=== PATIENT | female | born 1985 | race Two or more races ===

== ENCOUNTER 2020-08-29 20:35 | Emergency (ER) | payer MEDICAID ==
[~2020-08-29] VITALS: Ht 167.6 cm; Wt 83.9 kg
[~2020-08-29 20:35] MED LIST: ALBUPOW26
[2020-08-29 21:56] VITALS: BP 136/85
[2020-08-29] MEDS ORDERED: ACETAMINOPHEN 325 MG TAB PO ONE (22:15)
[2020-08-30] MEDS ORDERED: cefTRIAXone SOD 1,000 MG VL IM ONE (00:45)
[2020-08-30] MEDS ORDERED: TETANUS-DIPTH-ACEL PERTUSSIS 0.5ML SYR Tdap IM ONE (00:45)
[2020-08-30] MEDS ORDERED: BACITRACIN TOP OINT 1 UD PKG TOP ONE (00:45)
== END 2020-08-30 01:13 | disposition home or self-care (01) ==
LOC: ER 20:40
DX: O9A.211 Injury, poisoning and certain other consequences of external causes complicating pregnancy, first trimester (principal); S91.332A Puncture wound without foreign body, left foot, initial encounter; W22.8XXA Striking against or struck by other objects, initial encounter; Y93.89 Activity, other specified; Y99.8 Other external cause status; Y92.89 Other specified places as the place of occurrence of the external cause
CPT/HCPCS: 81025; 90471; 90715; 96372; 99284; J0696

== ENCOUNTER 2020-09-29 19:37 | Emergency (ER) | payer MEDICAID ==
[~2020-09-29] VITALS: Ht 170.2 cm; Wt 90.7 kg
[2020-09-29] MEDS ORDERED: ACETAMINOPHEN 325 MG TAB PO ONE (21:00)
[2020-09-29] MEDS ORDERED: SODIUM CHLORIDE 0.9% 1,000 ML IV ONE (21:00)
[2020-09-29 21:13] LABS: Basophils # (auto) 0.1 10 ^3/uL (0-0.2); Basophils % (auto) 0.4 % (0.0-2.0); Eosinophils # (auto) 0.2 10 ^3/uL (0-0.8); Eosinophils % (auto) 1.3 % (0.0-7.0); Hematocrit 37.5 % (36.0-46.0); Hemoglobin 12.8 g/dL (12.2-16.2); Lymphocytes # (auto) 2.7 10 ^3/uL (0.4-5.4); Lymphocytes % (auto) 20.7 % (10.0-50.0); Mean Corpuscular Hemoglobin 29.6 pg (28.0-32.0); Monocytes # (auto) 0.9 10 ^3/uL (0-1.3); Monocytes % (auto) 6.6 % (0.0-12.0); Neutrophils # (auto) 9.1 10 ^3/uL (1.6-8.6); Nucleated Red Blood Cells % 0.1 %; Platelet Count (auto) 265 10^3/uL (140-450); Red Blood Cells 4.31 10^6/uL (4.0-5.20); Red Cell Distribution Width 14.5 % (11.8-14.3); White Blood Cell 12.9 10^3/uL (4.4-10.8)
[2020-09-29 21:30] LABS: Albumin 3.5 g/dL (3.4-5.0); Calcium 8.7 mg/dL (8.5-10.1); Potassium 3.8 mmol/L (3.5-5.1)
[2020-09-29 21:33] LABS: BUN/Creatinine Ratio 21.7; Bilirubin, Total 0.6 mg/dL (0.2-1.0); Total Protein 7.5 g/dL (6.4-8.2)
[2020-09-29 22:31] VITALS: BP 113/71
== END 2020-09-29 22:36 | disposition home or self-care (01) ==
LOC: ER 19:37
DX: O20.0 Threatened abortion (principal); O20.8 Other hemorrhage in early pregnancy; Z3A.11 11 weeks gestation of pregnancy
CPT/HCPCS: 36415; 76801; 80053; 84702; 85025; 96360; 99284; J7030

== ENCOUNTER 2021-01-22 08:58 | Emergency (ER) | payer MEDICAID ==
[~2021-01-22] VITALS: Ht 167.6 cm; Wt 99.8 kg
[2021-01-22] MEDS ORDERED: SODIUM CHLORIDE 0.9% 1,000 ML IV ONE ×2 (09:15)
[2021-01-22 09:22] LABS: Basophils # (auto) 0 10 ^3/uL (0-0.2); Basophils % (auto) 0.4 % (0.0-2.0); Eosinophils # (auto) 0.1 10 ^3/uL (0-0.8); Eosinophils % (auto) 0.9 % (0.0-7.0); Hematocrit 37.3 % (36.0-46.0); Hemoglobin 12.3 g/dL (12.2-16.2); Lymphocytes # (auto) 1.8 10 ^3/uL (0.4-5.4); Lymphocytes % (auto) 15.6 % (10.0-50.0); Mean Corpuscular Hemoglobin 28.5 pg (28.0-32.0); Mean Corpuscular Hgb Conc. 33.1 g/dL (32.0-36.0); Mean Corpuscular Volume 86.2 fL (80.0-100.0); Monocytes # (auto) 0.4 10 ^3/uL (0-1.3); Monocytes % (auto) 3.8 % (0.0-12.0); Neutrophils % (auto) 79.3 % (37.0-80.0); Red Blood Cells 4.32 10^6/uL (4.0-5.20); Red Cell Distribution Width 14.1 % (11.8-14.3); White Blood Cell 11.4 10^3/uL (4.4-10.8)
[2021-01-22 09:35] LABS: Albumin 2.6 g/dL (3.4-5.0); Calcium 8.2 mg/dL (8.5-10.1); Potassium 3.6 mmol/L (3.5-5.1)
[2021-01-22 09:39] LABS: BUN/Creatinine Ratio 6.6; Bilirubin, Total 0.2 mg/dL (0.2-1.0); Total Protein 6.6 g/dL (6.4-8.2)
[2021-01-22] MEDS ORDERED: ONDANSETRON HCL 4 MG/2 ML VIAL IV ONE (11:30)
[2021-01-22 13:14] VITALS: BP 127/69
== END 2021-01-22 13:08 | disposition home or self-care (01) ==
LOC: ER 08:58
DX: O21.8 Other vomiting complicating pregnancy (principal); Z3A.27 27 weeks gestation of pregnancy
CPT/HCPCS: 36415; 76805; 80053; 84702; 85025; 96361; 96374; 99284; J2405; J7030

== ENCOUNTER 2021-02-03 17:47 | Observation (INO) | payer MEDICAID ==
[~2021-02-03] VITALS: Ht 170.2 cm; Wt 101.2 kg
[2021-02-03 17:55] VITALS: BP 152/72
[2021-02-03] MEDS ORDERED: PREN-96 PO (18:25)
== END 2021-02-03 19:00 | disposition home or self-care (01) ==
LOC: ER 17:47 → LDRP 17:50
PROVIDERS: ADMIT Obstetrics & Gynecology; ATTEND Obstetrics & Gynecology
DX: O62.9 Abnormality of forces of labor, unspecified (principal); O99.891 Other specified diseases and conditions complicating pregnancy; R10.9 Unspecified abdominal pain; M54.9 Dorsalgia, unspecified; D84.9 Immunodeficiency, unspecified; Z3A.30 30 weeks gestation of pregnancy
CPT/HCPCS: 59025; 81002; 99284; G0378

== ENCOUNTER 2021-03-20 10:30 | Observation (INO) | payer MEDICAID ==
[~2021-03-20 10:30] MED LIST changes: +PREN-96 PO
== END 2021-03-20 11:27 | disposition home or self-care (01) ==
LOC: LDRP 10:30
PROVIDERS: ADMIT Obstetrics & Gynecology; ATTEND Obstetrics & Gynecology
DX: O99.613 Diseases of the digestive system complicating pregnancy, third trimester (principal); K08.89 Other specified disorders of teeth and supporting structures; O26.893 Other specified pregnancy related conditions, third trimester; R10.9 Unspecified abdominal pain; Z3A.36 36 weeks gestation of pregnancy; Z87.51 Personal history of pre-term labor
CPT/HCPCS: 59025; 81002; 94760; G0378; G0379

== ENCOUNTER 2021-10-04 11:45 | Emergency (ER) | payer MEDICAID, OTHER ==
[~2021-10-04] VITALS: Ht 170.2 cm; Wt 90.7 kg
[2021-10-04 12:44] LABS: Eosinophils # (auto) 0.1 10 ^3/uL (0-0.8); Hematocrit 39.6 % (36.0-46.0); Lymphocytes # (auto) 1.7 10 ^3/uL (0.4-5.4); Mean Corpuscular Hemoglobin 26.9 pg (28.0-32.0); Monocytes # (auto) 0.5 10 ^3/uL (0-1.3)
[2021-10-04] MEDS ORDERED: SODIUM CHLORIDE 0.9% 1,000 ML IV ONE (12:45)
[2021-10-04] MEDS ORDERED: ONDANSETRON HCL 4 MG/2 ML VIAL IV ONE ×2 (12:45→16:30)
[2021-10-04] MEDS ORDERED: HYDROmorphone HCL 2 MG/ML VL/or syr IV ONE ×2 (12:45→16:30)
[2021-10-04 12:46] LABS: Basophils # (auto) 0 10 ^3/uL (0-0.2); Basophils % (auto) 0.3 % (0.0-2.0); Eosinophils % (auto) 0.9 % (0.0-7.0); Lymphocytes % (auto) 13.1 % (10.0-50.0); Mean Corpuscular Volume 81.6 fL (80.0-100.0); Monocytes % (auto) 3.8 % (0.0-12.0); Neutrophils # (auto) 10.8 10 ^3/uL (1.6-8.6); Neutrophils % (auto) 81.9 % (37.0-80.0); Red Blood Cells 4.85 10^6/uL (4.0-5.20); Red Cell Distribution Width 14.7 % (11.8-14.3); White Blood Cell 13.2 10^3/uL (4.4-10.8)
[2021-10-04 13:00] LABS: Albumin 3.6 g/dL (3.4-5.0); Calcium 8.6 mg/dL (8.5-10.1); Potassium 3.1 mmol/L (3.5-5.1)
[2021-10-04 13:06] LABS: Bilirubin, Total 0.8 mg/dL (0.2-1.0); Total Protein 7.6 g/dL (6.4-8.2)
[2021-10-04 13:21] LABS: Urine Bacteria FEW /hpf (None Seen); Urine Blood 1+ /uL (Negative); Urine Specific Gravity 1.007 (1.001-1.035); Urine WBC 1 /hpf (0 - 5)
[2021-10-04] MEDS ORDERED: CIPR-173 PO (16:01)
[2021-10-04] MEDS ORDERED: PERCOT PO (16:01)
[2021-10-04] MEDS ORDERED: TAM04C PO (16:01)
[2021-10-04 17:13] VITALS: BP 113/68
== END 2021-10-04 17:30 | disposition home or self-care (01) ==
LOC: ER 11:45 → EDBD 11:45 → ER 17:30
DX: N20.1 Calculus of ureter (principal); Z79.899 Other long term (current) drug therapy
CPT/HCPCS: 36415; 74176; 80053; 81001; 83690; 85025; 96361; 96374; 96375; 96376; 99285; J1170; J2405; J7030

== ENCOUNTER 2024-02-15 10:48 | Inpatient (IN) | payer MEDICAID ==
[~2024-02-15] VITALS: Ht 167.6 cm; Wt 94.0 kg
[~2024-02-15 10:48] MED LIST changes: +CIPR-173 PO; +PERCOT PO; +TAMS-35 PO
[2024-02-15] MEDS: VANCOMYCIN 1GM/200ML PREMIX 200 ML IV ONE ×2 (11:59→18:01)
[2024-02-15] MEDS: MORPHINE SULFATE 4 MG/ML SYR/VIAL IV ONE (11:59)
[2024-02-15] MEDS: ONDANSETRON HCL 4 MG/2 ML VIAL IV ONE (11:59)
[2024-02-15 12:13] VITALS: PULSE 63; O2SAT 99
[2024-02-15] MEDS ORDERED: AUG875T PO (13:07)
[2024-02-15] MEDS ORDERED: ACETAMINOPHEN 325 MG TAB PO PRN (16:00)
[2024-02-15] MEDS ORDERED: VANCOMYCIN PER PHARMACY 0 MG IV SCH ×2 (16:15→16:30)
[2024-02-15] MEDS: ACETAMINOPHEN 500 MG TAB PO ONE ×2 (16:18→16:19)
[2024-02-15] MEDS: SODIUM CHLORIDE 0.9% 1,000 ML IV SCH (17:16)
[2024-02-15] MEDS: MORPHINE SULFATE INJ 2 MG/ml SYRG IV PRN (18:01)
[2024-02-15 19:09] LABS: Basophils # (auto) 0.1 10 ^3/uL (0-0.2); Basophils % (auto) 0.8 % (0.0-2.0); Lymphocytes # (auto) 2.2 10 ^3/uL (0.4-5.4); Mean Corpuscular Hgb Conc. 32.1 g/dL (32.0-36.0); Red Cell Distribution Width 18.8 % (11.8-14.3); White Blood Cell 8.3 10^3/uL (4.4-10.8)
[2024-02-15 19:11] LABS: Eosinophils # (auto) 0.4 10 ^3/uL (0-0.8); Eosinophils % (auto) 4.6 % (0.0-7.0); Hematocrit 35.6 % (36.0-46.0); Hemoglobin 11.4 g/dL (12.2-16.2); Mean Corpuscular Hemoglobin 25.4 pg (28.0-32.0); Mean Corpuscular Volume 79.2 fL (80.0-100.0); Monocytes # (auto) 0.7 10 ^3/uL (0-1.3); Monocytes % (auto) 8.2 % (0.0-12.0); Neutrophils # (auto) 4.9 10 ^3/uL (1.6-8.6); Neutrophils % (auto) 59.4 % (37.0-80.0); Platelet Count (auto) 344 10^3/uL (140-450)
[2024-02-15 19:16] LABS: Chloride 107 mmol/L (98-107); Potassium 3.4 mmol/L (3.5-5.1); Sodium 139 mmol/L (136-145)
[2024-02-15 19:17] LABS: Anion Gap 7 (5-15); Calcium 9.2 mg/dL (8.7-10.4); Carbon Dioxide 25 mmol/L (20-31)
[2024-02-15 19:22] LABS: BUN/Creatinine Ratio 12.7 (10.0-20.0); Blood Urea Nitrogen 9 mg/dL (9-23); Glucose 72 mg/dL (74-106)
[2024-02-15] MEDS ORDERED: OXY10CRT PO (20:19)
[2024-02-15] MEDS ORDERED: TRAM50TA2 PO (20:19)
[2024-02-15] MEDS ORDERED: GABA-2171 PO (20:19)
[2024-02-15] MEDS: HYDROcodone-ACET 5/325MG TAB PO PRN (20:44)
[2024-02-15] MEDS: ASCORBIC ACID 500 MG TAB PO SCH (20:44)
[2024-02-15 21:00] VITALS: BP 113/70; PULSE 65; RESP 19; TEMP 98; O2SAT 98
[2024-02-16] VITALS (7 sets, daily range): BP systolic 103–154; BP diastolic 44–66; PULSE 60–84; RESP 17–21; TEMP 97.6–98.3; O2SAT 95–100
[2024-02-16 07:45] LABS: Basophils # (auto) 0.1 10 ^3/uL (0-0.2); Eosinophils # (auto) 0.5 10 ^3/uL (0-0.8); Eosinophils % (auto) 5.3 % (0.0-7.0); Hematocrit 36.2 % (36.0-46.0); Lymphocytes # (auto) 1.5 10 ^3/uL (0.4-5.4); Monocytes # (auto) 0.6 10 ^3/uL (0-1.3)
[2024-02-16 07:47] LABS: Basophils % (auto) 0.9 % (0.0-2.0); Hemoglobin 11.5 g/dL (12.2-16.2); Lymphocytes % (auto) 16.4 % (10.0-50.0); Mean Corpuscular Hemoglobin 25.3 pg (28.0-32.0); Mean Corpuscular Hgb Conc. 31.8 g/dL (32.0-36.0); Mean Corpuscular Volume 79.7 fL (80.0-100.0); Monocytes % (auto) 6.8 % (0.0-12.0); Neutrophils # (auto) 6.5 10 ^3/uL (1.6-8.6); Neutrophils % (auto) 70.6 % (37.0-80.0); Nucleated Red Blood Cells % 0.2 %; Platelet Count (auto) 322 10^3/uL (140-450); Red Blood Cells 4.55 10^6/uL (4.0-5.20); Red Cell Distribution Width 18.8 % (11.8-14.3); White Blood Cell 9.2 10^3/uL (4.4-10.8)
[2024-02-16 08:02] LABS: Alanine Aminotransferase < 9 U/L (7-40); Albumin 4.1 g/dL (3.2-4.8); Alkaline Phosphatase 68 U/L (46-116); Anion Gap 7 (5-15); Aspartate Aminotransferase 10 U/L (13-40); BUN/Creatinine Ratio 12.1 (10.0-20.0); Blood Urea Nitrogen 7 mg/dL (9-23); Calcium 8.9 mg/dL (8.7-10.4); Carbon Dioxide 22 mmol/L (20-31); Chloride 109 mmol/L (98-107); Glucose 92 mg/dL (74-106); Potassium 4.1 mmol/L (3.5-5.1); Sodium 138 mmol/L (136-145)
[2024-02-16 08:03] LABS: Bilirubin, Total 0.3 mg/dL (0.2-1.0)
[2024-02-16] MEDS: MULTIPLE VITAMIN TAB PO SCH (08:34)
[2024-02-16] MEDS: PRENATAL VITAMIN TAB PO SCH (08:34)
[2024-02-16] MEDS: ZINC SULFATE 220mg CAP or TAB PO SCH (08:34)
[2024-02-16] MEDS: TAMSULOSIN HYDROCHLORIDE 0.4 MG CAP PO SCH (08:34)
[2024-02-16] MEDS: ENOXAPARIN SOD 40 MG/0.4 ML SYRINGE SC SCH (08:34)
[2024-02-16] MEDS ORDERED: PATIENTS OWN MEDICATION (Prenatal Vit W/ Ferrous Fumara (Prenatal One Daily) 1 TAB) PO SCH (10:00)
[2024-02-16] MEDS ORDERED: TAMSULOSIN HYDROCHLORIDE 0.4 MG CAP PO SCH (10:00)
[2024-02-16] MEDS ORDERED: ENOXAPARIN SOD 40 MG/0.4 ML SYRINGE SC SCH (10:00)
[2024-02-16] MEDS: cefTRIAXone 1GM/50ML D5W 50 ML IV ONE (12:59)
[2024-02-16 16:30] LABS: % Iron Saturation 7.4 % (15-50)
[2024-02-16] MEDS: VANCOMYCIN 1GM/200ML PREMIX 200 ML IV SCH (16:55)
[2024-02-16] MEDS: GADOTERATE MEG 10 MMOL/20ml INJ (0.5MMOL/ml) IV ONE (17:43)
[2024-02-17 05:00] VITALS: BP 119/76; PULSE 60; RESP 17; TEMP 98; O2SAT 100
[2024-02-17 07:05] LABS: Calcium 9.2 mg/dL (8.7-10.4); Chloride 107 mmol/L (98-107); Potassium 4.2 mmol/L (3.5-5.1); Sodium 140 mmol/L (136-145)
[2024-02-17 07:06] LABS: Anion Gap 6 (5-15); Carbon Dioxide 27 mmol/L (20-31)
[2024-02-17 07:11] LABS: BUN/Creatinine Ratio 15.4 (10.0-20.0); Blood Urea Nitrogen 10 mg/dL (9-23); Glucose 97 mg/dL (74-106)
[2024-02-17 07:21] LABS: Basophils # (auto) 0.1 10 ^3/uL (0-0.2); Eosinophils # (auto) 0.6 10 ^3/uL (0-0.8); Eosinophils % (auto) 8.5 % (0.0-7.0); Hematocrit 34.3 % (36.0-46.0); Lymphocytes # (auto) 1.4 10 ^3/uL (0.4-5.4); Lymphocytes % (auto) 19.2 % (10.0-50.0); Mean Corpuscular Hemoglobin 25.9 pg (28.0-32.0); Mean Corpuscular Hgb Conc. 32.1 g/dL (32.0-36.0); Mean Corpuscular Volume 80.4 fL (80.0-100.0); Monocytes # (auto) 0.6 10 ^3/uL (0-1.3); Neutrophils # (auto) 4.7 10 ^3/uL (1.6-8.6); Neutrophils % (auto) 63.3 % (37.0-80.0); Platelet Count (auto) 288 10^3/uL (140-450); Red Blood Cells 4.26 10^6/uL (4.0-5.20); Red Cell Distribution Width 18.4 % (11.8-14.3); White Blood Cell 7.5 10^3/uL (4.4-10.8)
[2024-02-17] MEDS: cefTRIAXone 1GM/50ML D5W 50 ML IV SCH (08:18)
[2024-02-17 09:00] VITALS: BP 127/73; PULSE 63; RESP 16; TEMP 97.4; O2SAT 99
[2024-02-17] MEDS ORDERED: IRON SUCROSE COMPLEX 100 ML IV SCH (12:00)
[2024-02-17] MEDS: IRON SUCROSE COMPLEX 100 ML IV SCH (12:23)
[2024-02-17 13:00] VITALS: BP 118/65; PULSE 77; RESP 19; TEMP 97.9; O2SAT 98
[2024-02-17] MEDS: VANCOMYCIN 1GM/250ML 250 ML IV SCH (15:41)
[2024-02-17 17:00] VITALS: BP 120/63; PULSE 62; RESP 17; TEMP 98.1; O2SAT 97
[2024-02-17 21:00] VITALS: BP 113/56; PULSE 71; RESP 20; TEMP 97.1; O2SAT 97
[2024-02-18 01:00] VITALS: BP 110/50; PULSE 75; RESP 19; TEMP 97; O2SAT 96
[2024-02-18] MEDS: VANCOMYCIN 1GM/200ML PREMIX 200 ML IV ONE (03:22)
[2024-02-18] MEDS: VANCOMYCIN 1GM/250ML 250 ML IV SCH ×2 (03:53→14:00)
[2024-02-18 05:00] VITALS: BP 112/45; PULSE 79; RESP 19; TEMP 98.1; O2SAT 94
[2024-02-18 09:01] VITALS: BP 117/69; PULSE 72; RESP 16; TEMP 97.9; O2SAT 97
[2024-02-18] MEDS: KETOROLAC TROMETH 30 MG/ML 1ML VIAL IV ONE (09:22)
[2024-02-18] MEDS ORDERED: LINE1TAB6 PO (09:51)
[2024-02-18 11:05] LABS: Anion Gap 5 (5-15); Carbon Dioxide 28 mmol/L (20-31); Chloride 105 mmol/L (98-107); Potassium 3.9 mmol/L (3.5-5.1); Sodium 138 mmol/L (136-145)
[2024-02-18 11:06] LABS: Calcium 9.6 mg/dL (8.7-10.4)
[2024-02-18 11:11] LABS: BUN/Creatinine Ratio 12.3 (10.0-20.0); Blood Urea Nitrogen 7 mg/dL (9-23); Glucose 86 mg/dL (74-106)
[2024-02-18 12:51] VITALS: TEMP 36.6
[2024-02-18] MEDS ORDERED: TRAM-626 PO (14:16)
[2024-02-18 14:46] VITALS: BP 126/82; PULSE 73; RESP 18
[2024-02-18] MEDS ORDERED: TRAM50TA2 PO (14:48)
== END 2024-02-18 16:33 | disposition home or self-care (01) | DRG 813 ==
LOC: ER 10:53 → OVERFLOW 16:10 → CENTRAL 18:35
PROVIDERS: ADMIT Internal Medicine; ATTEND Internal Medicine
DX: T86.822 Skin graft (allograft) (autograft) infection (principal); L03.115 Cellulitis of right lower limb; S91.301A Unspecified open wound, right foot, initial encounter; D50.9 Iron deficiency anemia, unspecified; F12.10 Cannabis abuse, uncomplicated; E66.9 Obesity, unspecified; E87.6 Hypokalemia; X58.XXXA Exposure to other specified factors, initial encounter; Z82.5 Family history of asthma and other chronic lower respiratory diseases; Z87.442 Personal history of urinary calculi; Z83.3 Family history of diabetes mellitus; Y93.89 Activity, other specified; Y92.89 Other specified places as the place of occurrence of the external cause; Y99.8 Other external cause status; Z68.31 Body mass index [BMI] 31.0-31.9, adult
CPT/HCPCS: 36415; 73720; 80048; 80053; 80202; 83540; 83550; 84702; 85025; 87081; G0378; J1885; J2405

== ENCOUNTER 2024-03-23 14:01 | Emergency (ER) | payer MEDICAID ==
[~2024-03-23] VITALS: Ht 167.6 cm; Wt 86.3 kg
[~2024-03-23 14:01] MED LIST changes: -ALBUPOW26; -CIPR-173 PO; +LINE1TAB6 PO; -PERCOT PO; -PREN-96 PO; -TAMS-35 PO; +TRAM-626 PO; +TRAM50TA2 PO
--- NOTE | 2024-03-23 16:44 | ED.PDOC ---
History of Present Illness HPI Comments 38 y/o F presents with c/o right foot wound discharge with associated pain, today. Patient reports onset of symptoms within the past 2 days following recent skin graft Sx to her right foot at [facility] on 02/27/24. Patient comments on being unable to drive herself to facility regar ding symptoms. Patient states on dressing wound, herself, since Sx. Denies having any fever, chills, numbness, or other associated symptoms or modifiers at this time. Chief Complaint: Wound Check Time Seen by MD: 16:30 Primary Care Provider: UNKNOWN Reviewed Notes: Nurses Notes, Medications, Allergies Allergies: Coded Allergies: NO KNOWN ALLERGIES (Unverified , 10/18/10) Home Meds Active Scripts Tramadol HCl (Tramadol HCl) 50 Mg Tab, 50 MG PO Q8HP PRN for 7 Days, #21 TAB Prov:RADHA ARNOLD MD 02/18/24 Linezolid (Zyvox) 600 Mg Tab, 600 MG PO BID for 10 Days, #20 TAB Prov:ISABEL BROWNING RESIDENT 02/18/24 Reported Medications Tramadol Hcl (Tramadol Hcl) 50 Mg Tab, 50 MG PO Q8HP PRN for 7 Days, #21 TAB 02/18/24 Information Source: Patient Mode of Arrival: Wheelchair Severity: Moderate Timing: Other (see HPI) Duration: Other (see HPI) Prehospital treatment: Other (see HPI) Past Medical History PAST MEDICAL HISTORY: Kidney Stones Past Medical History (Other): current right wound Surgical History (Other): skin 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 Family History Family History: Family hx of DM Social History Smoker: Non-Smoker Alcohol: Denies ETOH Use Drugs: Marijuana Lives In: Home Constitutional: denies: chills, diaphoresis, fatigue, fever, malaise, sweats, weakness, others EENTM: denies: blurred vision, double vision, ear bleeding, ear discharge, ear drainage, ear pain, ear ringing, eye pain, eye redness, hearing loss, mouth pain, mouth swelling, nasal discharge, nose bleeding, nose congestion, nose pain, photophobia, tearing, throat pain, throat swelling, voice changes, others Respiratory: denies: cough, hemoptysis, orthopnea, SOB at rest, shortness of b reath, SOB with excertion, stridor, wheezing, others Cardiovascular: denies: chest pain, dizzy spells, diaphoresis, Dyspnea on exertion, edema, irregular heart beat, left arm pain, lightheadedness, palpitations, PND, syncope, others Gastrointestinal: denies: abdomen distended, abdominal pain, blood streaked bowels, constipated, diarrhea, dysphagia, difficulty swallowing, hematemesis, melena, nausea, poor appetite, poor fluid intake, rectal bleeding, rectal pain, vomiting, others Genitourinary: denies: abnormal vagina bleeding, burning, dyspareunia, dysuria, flank pain, frequency, hematuria, incontinence, pain, , vagina discharge, urgency, others Neurological: denies: dizziness, fainting, headache, left sided numbness, left sided weakness, numbness, paresthesia, pre-existing deficit, right sided numbness, right sided weakness, seizure, speech problems, tingling, tremors, weakness, others Musculoskeletal: denies: back pain, gout, joint pain, joint swelling, muscle pain, muscle stiffness, neck pain, others Integumetry: denies: bruises, change in color, change in hair/nails, dryness, laceration, lesions, lumps, rash, wounds, others Allergic/Immunocompromised: denies: Difficulty Healing, Frequent Infections, Hives, Itching, others Hematologic/Lymphatic: denies: anemia, blood clots, easy bleeding, easy bruising, swollen glands, others Endocrine: denies: excessive hunger, excessive sweating, excessive thirst, excessive urination, flushing, intolerance to cold, intolerance to heat, unexplained weight gain, unexplained weight loss, others Psychiatric: denies: anxiety, bipolar disorder, depression, hopeless, panic disorder, schizophrenia, sleepless, suicidal, others All Other Systems: Reviewed and Negative (see HPI) Physical Exam General Appearance: Moderate Distress HEENT: Normal ENT Inspection, Pharynx Normal, TMs Normal Neck: Full Range of Motion, Non-Tender, Normal, Normal Inspection Respiratory: Chest Non-Tender, Lungs Clear, No Accessory Muscle Use, No Respiratory Distress, Normal Breath Sounds Cardiovascular: No Edema, No JVD, No Murmur, No Gallop, Normal Peripheral Pulses, Regular Rate/Rhythm Breast Exam: Deferred Gastrointestinal: No Organomegaly, Non Tender, No Pulsatile Mass, Normal Bowel Sounds, Soft Genitalia: Deferred Pelvic: Deferred Rectal: Deferred Extremities: No calf tenderness, Normal capillary refill, Normal inspection, Normal range of motion, Non-tender, No pedal edema Musculoskeletal : Apperance: Normal Neurologic: Alert Cerebellar Function: NOT DONE Reflexes: NOT DONE Skin: Wounds (Right foot) Peripheral Pulses: 3+ Radial (R), 3+ Radial (L) Lymphatic: No Adenopathy Was a procedure done? Was a procedure done?: No Differential Dx Considerations may include: non-healing wound, cellulitis, sepsis, post-op complication X-Ray, Labs, Meds, VS Vital Signs Date Time Temp Pulse Resp B/P (MAP) Pulse Ox O2 Delivery O2 Flow Rate FiO2 03/23/24 14:35 98.5 78 20 126/66 (86) 98 Patient alert. Complaining of right foot wound. Vitals stable. Answering all questions. Wound healing well. Counseled patient on wound care for 15 minutes. Was told to follow up with the [facility]. Was given prescription of Keflex clindamycin antibiotic. Was told to follow up with her primary care physician. Was told to come back if there is any problem. Time of 1ST Reevaluation: 17:00 Reevaluation 1ST: Unchanged Patient Education/Counseling: Diagnosis, Treatment Family Education/Counseling: No Family Present Departure 1 Departure Time of Disposition: 16:46 Impression: Primary Impression: Cellulitis Qualified Codes: L03.115 - Cellulitis of right lower limb Disposition: 01 HOME / SELF CARE / HOMELESS Condition: Good e-Prescriptions Clindamycin Hcl (Clindamycin Hcl) 300 Mg Cap 1 CAP PO TID for 10 Days, #30 CAP Prov: MIRTA GUZMÁN MD 03/23/24 Cephalexin (KEFLEX CAPSULE) 250 Mg Cp 250 MG PO QID for 10 Days, #40 BOTTLE Prov: MIRTA GUZMÁN MD 03/23/24 Discharged With: Self Critical Care Note Critical Care Time?: No Stability Stability form required: No Heart Score Heart Score: Heart Score Response (Comments) Value History N/A 0 EKG N/A 0 Age N/A 0 Risk Factors N/A 0 Troponin N/A 0 Total 0 I personally scribed for MIRTA GUZMÁN MD ([email or web address]) on 03/23/24 at 16:44. Electronically submitted by Damien [email or web address]). MIRTA GUZMÁN MD Mar 23, 2024 16:44
[2024-03-23] MEDS ORDERED: CEPH250C PO (16:48)
[2024-03-23] MEDS ORDERED: CLIN1CAP70 PO (16:48)
[2024-03-23 17:04] VITALS: BP 120/72; PULSE 76; RESP 20; TEMP 98.2; O2SAT 97
== END 2024-03-23 17:08 | disposition home or self-care (01) ==
LOC: ER 14:01
DX: L03.115 Cellulitis of right lower limb (principal); F15.90 Other stimulant use, unspecified, uncomplicated; Z98.890 Other specified postprocedural states; Z79.899 Other long term (current) drug therapy

== ENCOUNTER 2024-05-22 10:19 | Emergency (ER) | payer MEDICAID ==
[~2024-05-22] VITALS: Ht 167.6 cm; Wt 86.3 kg
[~2024-05-22 10:19] MED LIST changes: +CEPH250C PO; +CLIN1CAP70 PO
[2024-05-22 10:25] VITALS: BP 129/61; PULSE 90; RESP 18; TEMP 99.1; O2SAT 97
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
[2024-05-22] MEDS: HYDROcodone-ACET 10/325MG TAB PO ONE (11:13)
[2024-05-22] MEDS ORDERED: HYDR-4798 PO (11:17)
[2024-05-22] MEDS ORDERED: CEPH500C PO (11:17)
== END 2024-05-22 11:26 | disposition home or self-care (01) ==
LOC: ER 10:19
DX: S91.301A Unspecified open wound, right foot, initial encounter (principal); F41.9 Anxiety disorder, unspecified; Z87.442 Personal history of urinary calculi; Z98.890 Other specified postprocedural states; X58.XXXA Exposure to other specified factors, initial encounter; Y93.89 Activity, other specified; Y92.89 Other specified places as the place of occurrence of the external cause; Y99.8 Other external cause status

== ENCOUNTER 2024-07-07 11:46 | Emergency (ER) | payer MEDICAID ==
[~2024-07-07] VITALS: Ht 167.6 cm; Wt 86.8 kg
[~2024-07-07 11:46] MED LIST changes: +CEPH500C PO; +HYDR-4798 PO
[2024-07-07 12:11] VITALS: BP 129/81; PULSE 94; RESP 18; O2SAT 98
--- NOTE | 2024-07-07 12:36 | ED.PDOC ---
General HPI Comments 38y F who presents to the ED for chief complaint of lower pelvic pain. Pt states she has been having diffuse lower pelvic pain for the past 4-5 hours. Pt states the pain is sharp and pressure like in nature, constant, rating the pain 8/10, with no associated exacerbating or relieving factors. Pt denies any associated symptoms including nasuea, vomiting , dysuria, fever, chills, hematuria, chest pain or shortness of breath. Pt states she has been taking tylenol and ibuprofen to no avail and came to the ED. Pt otherwise denies any other symptoms at this time. Chief Complaint: Pelvic Pain Time Seen by MD: 12:34 Primary Care Provider: UNKNOWN Reviewed notes: Nurses Notes, Medications, Allergies Allergies: Coded Allergies: NO KNOWN ALLERGIES (Unverified , 10/18/10) Home Meds Active Scripts Hydrocodone-Acetaminophen (Hydrocodone Bitartrate/AC 5-325 mg) 1 Tab Tab, 1 TAB PO Q8HP PRN for 5 Days, #15 TAB Prov:PRIMITIVO CORTÉS MD 07/07/24 Hydrocodone-Acetaminophen (Hydrocodone Bitartrate/AC 10-325 mg) 1 Tab Tab, 1 TAB PO BID, #10 TAB Prov:NICKOLAS OLSON 05/22/24 Cephalexin Monohydrate (Cephalexin) 500 Mg Cap, 1 CAP PO QID, #40 CAP Prov:NICKOLAS OLSON 05/22/24 Clindamycin Hcl (Clindamycin Hcl) 300 Mg Cap, 1 CAP PO TID for 10 Days, #30 CAP Prov:MIRTA GUZMÁN MD 03/23/24 Cephalexin (KEFLEX CAPSULE) 250 Mg Cp, 250 MG PO QID for 10 Days, #40 BOTTLE Prov:MIRTA GUZMÁN MD 03/23/24 Tramadol HCl (Tramadol HCl) 50 Mg Tab, 50 MG PO Q8HP PRN for 7 Days, #21 TAB Prov:RADHA ARNOLD MD 02/18/24 Linezolid (Zyvox) 600 Mg Tab, 600 MG PO BID for 10 Days, #20 TAB Prov:ISABEL BROWNING 02/18/24 Reported Medications Tramadol Hcl (Tramadol Hcl) 50 Mg Tab, 50 MG PO Q8HP PRN for 7 Days, #21 TAB 02/18/24 Information Source: Patient Mode of Arrival: Ambulatory Brought in by: self Severity: Moderate Inability to void: None Timing: Hours Duration: Since onset Prehospital treatment: None Onset: Spontaneous Symptoms: None Location: Suprapubic Location male: Other Modifying factors: None associated signs and symptoms: Abdominal Pain Past Medical History PAST MEDICAL HISTORY: Anxiety, Kidney 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 Family History Family History: Family hx of DM Social History Smoker: Non-Smoker Alcohol: Denies ETOH Use Drugs: Marijuana Lives In: Home Constitutional: denies: chills, diaphoresis, fatigue, fever, malaise, sweats, weakness, others EENTM: denies: blurred vision, double vision, ear bleeding, ear discharge, ear drainage, ear pain, ear ringing, eye pain, eye redness, hearing loss, mouth pain, mouth swelling, nasal discharge, nose bleeding, nose congestion, nose pain, photophobia, tearing, throat pain, throat swelling, voice changes, others Respiratory: denies: cough, hemoptysis, orthopnea, SOB at rest, shortness of breath, SOB with excertion, stridor, wheezing, others Cardiovascular: denies: chest pain, dizzy spells, diaphoresis, Dyspnea on exertion, edema, irregular heart beat, left arm pain, lightheadedness, palpitations, PND, syncope, others Gastrointestinal: denies: abdomen distended, abdominal pain, blood streaked bowels, constipated, diarrhea, dysphagia, difficulty swallowing, hematemesis, melena, nausea, poor appetite, poor fluid intake, rectal bleeding, rectal pain, vomiting, others Genitourinary: reports: pain; denies: abnormal vagina bleeding, burning, dyspareunia, dysuria, flank pain, frequency, hematuria, incontinence, , vagina discharge, urgency, others Neurological: denies: dizziness, fainting, headache, left sided numbness, left sided weakness, numbness, paresthesia, pre-existing deficit, right sided numbness, right sided weakness, seizure, speech problems, tingling, tremors, weakness, others Musculoskeletal: denies: back pain, gout, joint pain, joint swelling, muscle pain, muscle stiffness, neck pain, others Integumetry: denies: bruises, change in color, change in hair/nails, dryness, laceration, lesions, lumps, rash, wounds, others Allergic/Immunocompromised: denies: Difficulty Healing, Frequent Infections, Hives, Itching, others Hematologic/Lymphatic: denies: anemia, blood clots, easy bleeding, easy bruising, swollen glands, others Endocrine: denies: excessive hunger, excessive sweating, excessive thirst, excessive urination, flushing, intolerance to cold, intolerance to heat, unexplained weight gain, unexplained weight loss, others Psychiatric: denies: anxiety, bipolar disorder, depression, hopeless, panic disorder, schizophrenia, sleepless, suicidal, others All Other Systems: Reviewed and Negative Physical Exam General Appearance: No Apparent Distress HEENT: Normal ENT Inspection, Pharynx Normal, TMs Normal Neck: Full Range of Motion, Non-Tender, Normal, Normal Inspection Respiratory: Chest Non-Tender, Lungs Clear, No Accessory Muscle Use, No Respiratory Distress, Normal Breath Sounds Cardiovascular: No Edema, No JVD, No Murmur, No Gallop, Normal Peripheral Pulses, Regular Rate/Rhythm Breast Exam: Deferred Gastrointestinal: No Organomegaly, No Pulsatile Mass, Normal Bowel Sounds, Soft, Suprapubic, Tenderness Genitalia: Deferred Pelvic: Deferred Rectal: Deferred Extremities: No calf tenderness, Normal capillary refill, Normal inspection, Normal range of motion, Non-tender, No pedal edema Musculoskeletal : Apperance: Normal Neurologic: Alert, law enforcement director II-XII nml as Tested, No Motor Deficits, Normal Affect, Normal Mood, No Sensory Deficits Cerebellar Function: Normal Reflexes: Normal Skin: Dry, Normal Color, Warm Lymphatic: No Adenopathy Was a procedure done? Was a procedure done?: No Differential Diagnosis Kidney stone (Female): Musculoskeletal pain, Ovarian torsion, Pancreatitis, Pyelonephritis, Strain, Urolithiasis Urinary Problem (Female): PID, Urinary retention, UTI X-Ray, Labs, Meds, VS Vital Signs Date Time Temp Pulse Resp B/P (MAP) Pulse Ox O2 Delivery O2 Flow Rate FiO2 07/07/24 12:11 97.9 94 18 129/81 (97) 98 Lab Test 07/07/24 13:00 Range/Units Urine Color Yellow Yellow Urine Clarity Turbid H Clear Urine pH 6.5 5.0-9.0 Urine Specific [place] 1.029 1.001-1.035 Urine Protein 1+ H Negative Urine Ketones 1+ H Negative Urine Blood 2+ H Negative /uL Urine Nitrite Negative Negative Urine Bilirubin Negative Negative Urine Urobilinogen Normal Negative mg/dL Urine Leukocyte Esterase Negative Negative /uL Urine RBC 30 0 - 4 /hpf Urine Microscopic WBC 2 0-5 /HPF Urine Squamous Epithelial Cells Mod <5 /hpf Urine Bacteria None seen None Seen /hpf Urine Mucus Few None Seen Urine Glucose Normal Normal mg/dL Urine Test Negative Negative Urine test is negative The test is negative The patient was being discharged with a diagnosis of pelvic pain The patient was given [place] here in the emergency department's The patient was given a prescription of [place] The patient will return to the emergency department's condition worsens. Time of 1ST Reevaluation: 13:05 Reevaluation 1ST: Unchanged Patient Education/Counseling: Diagnosis, Treatment, Prognosis, Need For Follow Up Family Education/Counseling: No Family Present Additional Information -Reviewed patient's previous visit(s): - The following tests were ordered, and results were reviewed by me:ua - Additional information was gathered from interviewing the following independent Historian: none - I reviewed and agreed with the following test results read by other provider: none - I discussed treatments and results with medical personnel and: patient Comprehensive systems review obtained and negative except for what is stated in the HPI. Departure 1 Departure Time of Disposition: 14:27 Impression: Primary Impression: Pelvic pain Disposition: 01 HOME / SELF CARE / HOMELESS Condition: Fair e-Prescriptions Hydrocodone-Acetaminophen (Hydrocodone Bitartrate/AC 5-325 mg) 1 Tab Tab 1 TAB PO Q8HP PRN for 5 Days, #15 TAB Prov: PRIMITIVO CORTÉS MD 07/07/24 Discharged With: Self Critical Care Note Critical Care Time?: No Stability Stability form required: No Heart Score Heart Score: Heart Score Response (Comments) Value History N/A 0 EKG N/A 0 Age N/A 0 Risk Factors N/A 0 Troponin N/A 0 Total 0 I personally scribed for PRIMITIVO CORTÉS MD ([email or web address]) on 07/07/24 at 12:36. Electronically submitted by Tanvir Hinton ([email or web address]). PRIMITIVO CORTÉS MD Jul 07, 2024 12:36
[2024-07-07 13:33] LABS: Urine Bacteria None Seen /hpf (None Seen)
[2024-07-07 14:12] LABS: Urine Blood 2+ /uL (Negative); Urine Clarity Turbid (Clear); Urine Color Yellow (Yellow); Urine Mucus FEW (None Seen); Urine Protein, UAD 1+ (Negative); Urine Specific Gravity 1.029 (1.001-1.035); Urine Squamous Epithelial Cell MOD /hpf (<5); Urine Urobilinogen Normal (Negative); Urine WBC 2 /HPF (0-5); Urine pH 6.5 (5.0-9.0)
[2024-07-07] MEDS ORDERED: HYDR-4902 PO (14:29)
[2024-07-07] MEDS ORDERED: HYDROcodone-ACET 10/325MG TAB PO ONE (14:30)
== END 2024-07-07 15:43 | disposition home or self-care (01) ==
LOC: ER 11:46
DX: R10.2 Pelvic and perineal pain (principal); F41.9 Anxiety disorder, unspecified; Z87.442 Personal history of urinary calculi; Z79.899 Other long term (current) drug therapy
CPT/HCPCS: 81001; 81025

== ENCOUNTER 2024-07-09 13:28 | Emergency (ER) | payer MEDICAID ==
[~2024-07-09] VITALS: Ht 167.6 cm; Wt 88.8 kg
[~2024-07-09 13:28] MED LIST changes: +HYDR-4902 PO
--- NOTE | 2024-07-09 15:17 | ED.PDOC ---
History of Present Illness HPI Comments A 38 YEAR OLD FEMALE PRESENTS TO THE ED WITH COMPLAINT OF WOUND RECHECK OF RIGHT FOOT. PATIENT STATES SHE HAS HAD A CHRONIC WOUND ON HER RIGHT FOOT FOR THE PAST SEVERAL MONTHS AND BEGAN TO NOTICE REDNESS AND A FOUL ODOR COMING FROM IT EARLIER TODAY WHEN SHE WOKE UP. PATIENT IS REQUESTING THIS WOUND BE CHECKED FOR INFECTION. PATIENT NOTES HER HOME HEALTH NURSE WILL COME TOMORROW TO CHECK HER WOUND. PATIENT DENIES FEVER, CHILLS, SHORTNESS OF BREATH, CHEST PAIN, ABDOMINAL PAIN, NAUSEA, VOMITING, HEADACHE, OR OTHER COMPLAINTS. NO OTHER SYMPTOMS OR MODIFYING FACTORS AT THIS TIME. PATIENT IS ALERT, ORIENTED X 4, AND HAS STEADY GAIT. Chief Complaint: Wound Check Time Seen by MD: 13:47 Primary Care Provider: UNKNOWN Reviewed Notes: Nurses Notes, Medications, Allergies Allergies: Coded Allergies: NO KNOWN ALLERGIES (Unverified , 10/18/10) Home Meds Active Scripts Sulfamethoxazole W/Trimethopri (Bactrim Ds Tablet) 1 Tab Tb, 1 TAB PO BID, #20 TAB Prov:NICKOLAS OLSON 07/09/24 Hydrocodone-Acetaminophen (Hydrocodone Bitartrate/AC 5-325 mg) 1 Tab Tab, 1 TAB PO Q8HP PRN for 5 Days, #15 TAB Prov:PRIMITIVO CORTÉS MD 07/07/24 Hydrocodone-Acetaminophen (Hydrocodone Bitartrate/AC 10-325 mg) 1 Tab Tab, 1 TAB PO BID, #10 TAB Prov:NICKOLAS OLSON 05/22/24 Cephalexin Monohydrate (Cephalexin) 500 Mg Cap, 1 CAP PO QID, #40 CAP Prov:NICKOLAS OLSON 05/22/24 Clindamycin Hcl (Clindamycin Hcl) 300 Mg Cap, 1 CAP PO TID for 10 Days, #30 CAP Prov:MIRTA GUZMÁN MD 03/23/24 Cephalexin (KEFLEX CAPSULE) 250 Mg Cp, 250 MG PO QID for 10 Days, #40 BOTTLE Prov:MIRTA GUZMÁN MD 03/23/24 Tramadol HCl (Tramadol HCl) 50 Mg Tab, 50 MG PO Q8HP PRN for 7 Days, #21 TAB Prov:RADHA ARNOLD MD 02/18/24 Linezolid (Zyvox) 600 Mg Tab, 600 MG PO BID for 10 Days, #20 TAB Prov:ISABEL BROWNING RESIDENT 02/18/24 Reported Medications Tramadol Hcl (Tramadol Hcl) 50 Mg Tab, 50 MG PO Q8HP PRN for 7 Days, #21 TAB 02/18/24 Information Source: Patient Mode of Arrival: Ambulatory Severity: Mild, Moderate Timing: Hours Duration: Since onset, Hours Prehospital treatment: None Medication Refill: For: Other (WOUND RECHECKED OF RIGHT FOOT) Past Medical History PAST MEDICAL HISTORY: Anxiety, Kidney Stones Past Medical History (Other): CHRONIC RIGHT FOOT WOUND Surgical History: Denies all surgeries 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 Family History Family History: Reviewed,noncontributory to illness, Family hx of DM Social History Smoker: Non-Smoker Alcohol: Denies ETOH Use Drugs: Marijuana Lives In: Home Constitutional: denies: chills, diaphoresis, fatigue, fever, malaise, sweats, weakness, others EENTM: denies: blurred vision, double vision, ear bleeding, ear discharge, ear drainage, ear pain, ear ringing, eye pain, eye redness, hearing loss, mouth pain, mouth swelling, nasal discharge, nose bleeding, nose congestion, nose pain, photophobia, tearing, throat pain, throat swelling, voice changes, others Respiratory: denies: cough, hemoptysis, orthopnea, SOB at rest, shortness of breath, SOB with excertion, stridor, wheezing, others Cardiovascular: denies: chest pain, dizzy spells, diaphoresis, Dyspnea on exertion, edema, irregular heart beat, left arm pain, lightheadedness, palpitations, PND, syncope, others Gastrointestinal: denies: abdomen distended, abdominal pain, blood streaked bowels, constipated, diarrhea, dysphagia, difficulty swallowing, hematemesis, melena, nausea, poor appetite, poor fluid intake, rectal bleeding, rectal pain, vomiting, others Genitourinary: denies: abnormal vagina bleeding, burning, dyspareunia, dysuria, flank pain, frequency, hematuria, incontinence, pain, , vagina discharge, urgency, others Neurological: denies: dizziness, fainting, headache, left sided numbness, left sided weakness, numbness, paresthesia, pre-existing deficit, right sided numbness, right sided weakness, seizure, speech problems, tingling, tremors, weakness, others Musculoskeletal: denies: back pain, gout, joint pain, joint swelling, muscle pain, muscle stiffness, neck pain, others Integumetry: reports: wounds (WOUND OF RIGHT FOOT); denies: bruises, change in color, change in hair/nails, dryness, laceration, lesions, lumps, rash, others Allergic/Immunocompromised: denies: Difficulty Healing, Frequent Infections, Hives, Itching, others Hematologic/Lymphatic: denies: anemia, blood clots, easy bleeding, easy bruising, swollen glands, others Endocrine: denies: excessive hunger, excessive sweating, excessive thirst, excessive urination, flushing, intolerance to cold, intolerance to heat, unexplained weight gain, unexplained weight loss, others Psychiatric: denies: anxiety, bipolar disorder, depression, hopeless, panic disorder, schizophrenia, sleepless, suicidal, others All Other Systems: Reviewed and Negative Physical Exam General Appearance: No Apparent Distress, Normal HEENT: Normal ENT Inspection, PERRL/EOMI, Pharynx Normal, TMs Normal Neck: Full Range of Motion, Non-Tender, Normal, Normal Inspection Respiratory: Chest Non-Tender, Lungs Clear, No Accessory Muscle Use, No Respiratory Distress, Normal Breath Sounds Cardiovascular: No Edema, No JVD, No Murmur, No Gallop, Normal Peripheral Pulses, Regular Rate/Rhythm Breast Exam: Deferred Gastrointestinal: No Organomegaly, Non Tender, No Pulsatile Mass, Normal Bowel Sounds, Soft Genitalia: Deferred Pelvic: Deferred Rectal: Deferred Extremities: No calf tenderness, Normal capillary refill, Normal inspection, Normal range of motion, No pedal edema, Tender (MILD TENDERNESS WITH CHRONIC WOUND ON RIGHT LATERAL DORSAL FOOT, NO BONY TENDERNESS AND SWELLING. ) Musculoskeletal : Apperance: Normal Neurologic: Alert, reinsurance analyst II-XII nml as Tested, No Motor Deficits, Normal Affect, Normal Mood, No Sensory Deficits Cerebellar Function: Normal Reflexes: Normal Skin: Dry, Normal Color, Warm, Wounds (CHRONIC HEALING WOUND ON RIGHT LATERAL DORSAL FOOT WITH MILD REDNESS AND FOUL ODOR, NO LOCALIZED SWELLING OR PUS DRAINAGE NOTED, NEUROVASCULAR INTACT. ) Peripheral Pulses: 2+ carotid (R), 2+ carotid (L), 2+ dorsalis pedis (R), 2+ dorsalis pedis (L) Lymphatic: No Adenopathy Was a procedure done? Was a procedure done?: No Differential Dx Considerations may include: WOUND RECHECKED, WOUND INFECTION, CELLULITIS, ERYSIPELAS X-Ray, Labs, Meds, VS Vital Signs Date Time Temp Pulse Resp B/P (MAP) Pulse Ox O2 Delivery O2 Flow Rate FiO2 07/09/24 15:21 98.0 110 20 157/68 (97) 96 98.0 07/09/24 15:21 110 20 96 Room Air 07/09/24 14:07 98.0 110 20 157/68 (97) 96 X-Ray, Labs, Meds, VS Comment EXTERNAL MEDICAL RECORDS REVIEWED: [NONE] INDEPENDENT HISTORIANS: [NONE] SOCIAL DETERMINANTS OF HEALTH: [NONE] LABS ORDERED: NONE REVIEWED AND INTERPRETED RESULTS: NONE IMAGING ORDERED: NONE TREATMENTS ORDERED: PATIENT HAS CHRONIC WOUND ON HER RIGHT FOOT WAS CLEANED USING NORMAL SALINE AND THEN WRAPPED WITH STERILE GAUZE. PROCEDURES PERFORMED: NONE CRITICAL CARE TIME: NONE I HAVE DISCUSSED THE PATIENT WITH THE ATTENDING PHYSICIAN DR. CORTÉS AND HE AGREES WITH THE PATIENT'S PLAN OF CARE AND DISPOSITION. BASED ON HISTORY OF PRESENT ILLNESS, AND PHYSICAL EXAM, PATIENT WILL BE DISCHARGED HOME. DISCUSSED PLAN FOR DISCHARGE HOME WITH RX [KEFLEX]. MEDICATION WARNINGS GIVEN. SHARED DECISION MAKING: PATIENT INSTRUCTED TO FOLLOW UP WITH PRIMARY CARE PROVIDER IN 1-2 DAYS FOR RE-EVALUATION OF SYMPTOMS. PATIENT VERBALIZES UNDERSTANDING TO RETURN TO ED FOR NEW OR WORSENING SYMPTOMS OR IF FOLLOW UP WITH PCP CANNOT BE OBTAINED. PATIENT FEELS COMFORTABLE GOING HOME AT THIS TIME. ALL QUESTIONS ADDRESSED AT TIME OF DISCHARGE. Time of 1ST Reevaluation: 15:32 Reevaluation 1ST: Improved Patient Education/Counseling: Diagnosis, Treatment, Need For Follow Up Family Education/Counseling: Diagnosis, Treatment, Need For Follow Up Medical Screening: No EMC Exist At This Time Departure 1 Departure Time of Disposition: 15:32 Impression: Primary Impression: Encounter for wound re-check Additional Impression: Chronic wound Disposition: 01 HOME / SELF CARE / HOMELESS Condition: Stable Additional Instructions: FOLLOW-UP WITH PCP IN 1 TO 2 DAYS. TAKE MEDICATIONS PRESCRIBED. RETURN TO ED FOR ANY NEW OR WORSENING SYMPTOMS. e-Prescriptions Sulfamethoxazole W/Trimethopri (Bactrim Ds Tablet) 1 Tab Tb 1 TAB PO BID, #20 TAB Prov: NICKOLAS OLSON 07/09/24 Discharged With: Self, Relative Critical Care Note Critical Care Time?: No Stability Stability form required: No I personally scribed for NICKOLAS OLSON ([email or web address]) on 07/09/24 at 15:17. Electronically submitted by Kulwant Perez ([email or web address]). NICKOLAS OLSON Jul 09, 2024 15:17
[2024-07-09 15:21] VITALS: BP 157/68; PULSE 110; RESP 20; TEMP 98; O2SAT 96
[2024-07-09] MEDS ORDERED: BACDST PO (15:26)
== END 2024-07-09 15:28 | disposition home or self-care (01) ==
LOC: ER 13:28
DX: S91.301A Unspecified open wound, right foot, initial encounter (principal); F41.9 Anxiety disorder, unspecified; F15.90 Other stimulant use, unspecified, uncomplicated; Z98.890 Other specified postprocedural states; Z79.899 Other long term (current) drug therapy; X58.XXXA Exposure to other specified factors, initial encounter; Y93.89 Activity, other specified; Y92.89 Other specified places as the place of occurrence of the external cause; Y99.8 Other external cause status

== ENCOUNTER 2024-08-01 13:43 | Inpatient (IN) | payer MEDICAID ==
[~2024-08-01] VITALS: Ht 167.6 cm; Wt 82.6 kg
[~2024-08-01 13:43] MED LIST changes: +BACDST PO
--- NOTE | 2024-08-01 13:57 | ED.PDOC ---
GI ASSESSMENT HPI Comments 38-year-old female with PMHx Anxiety, Renal Stones presents with a chief complaint of abdominal pain x onset (07/29/2024). Patient states that her pain is localized to her LUQ, nonradiating, describes as burning and rates her pain a 8/10 at this time. Patient mentions that she has also been having nausea with some vomiting episodes. Patient denies any diarrhea or any blood in her emesis. Patient denies fever, chills, diarrhea, rectal bleeding, or rectal pain. Chief Complaint: Abdominal Pain Time Seen by MD: 13:50 Primary Care Provider: UNKNOWN Reviewed Notes: Nurses Notes, Medications, Allergies Allergies: Coded Allergies: NO KNOWN ALLERGIES (Unverified , 10/18/10) Home Meds Active Scripts Sulfamethoxazole W/Trimethopri (Bactrim Ds Tablet) 1 Tab Tb, 1 TAB PO BID, #20 TAB Prov:NICKOLAS OLSON 07/09/24 Hydrocodone-Acetaminophen (Hydrocodone Bitartrate/AC 5-325 mg) 1 Tab Tab, 1 TAB PO Q8HP PRN for 5 Days, #15 TAB Prov:PRIMITIVO CORTÉS MD 07/07/24 Hydrocodone-Acetaminophen (Hydrocodone Bitartrate/AC 10-325 mg) 1 Tab Tab, 1 TAB PO BID, #10 TAB Prov:NICKOLAS OLSON 05/22/24 Cephalexin Monohydrate (Cephalexin) 500 Mg Cap, 1 CAP PO QID, #40 CAP Prov:NICKOLAS OLSON 05/22/24 Clindamycin Hcl (Clindamycin Hcl) 300 Mg Cap, 1 CAP PO TID for 10 Days, #30 CAP Prov:MIRTA GUZMÁN MD 03/23/24 Cephalexin (KEFLEX CAPSULE) 250 Mg Cp, 250 MG PO QID for 10 Days, #40 BOTTLE Prov:MIRTA GUZMÁN MD 03/23/24 Tramadol HCl (Tramadol HCl) 50 Mg Tab, 50 MG PO Q8HP PRN for 7 Days, #21 TAB Prov:RADAH ARNOLD MD 02/18/24 Linezolid (Zyvox) 600 Mg Tab, 600 MG PO BID for 10 Days, #20 TAB Prov:IASBEL BROWNING 02/18/24 Reported Medications Tramadol Hcl (Tramadol Hcl) 50 Mg Tab, 50 MG PO Q8HP PRN for 7 Days, #21 TAB 02/18/24 Information Source: Patient Mode of Arrival: Ambulatory Timing: Days Duration: Since onset Prehospital treatment: None Quality: Burning Vomitus: Food Particles Stool: Normal Severity: Moderate Recent: None Recent Hx of: None Pain Location: LUQ Associated sign and symptoms: Nausea, Vomiting, Abdominal Pain Past Medical History PAST MEDICAL HISTORY: Anxiety, Kidney Stones 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 Family History Family History: Reviewed,noncontributory to illness, Family hx of DM Social History Smoker: Non-Smoker Alcohol: Denies ETOH Use Drugs: Marijuana Lives In: Home Constitutional: denies: chills, diaphoresis, fatigue, fever, malaise, sweats, weakness, others EENTM: denies: blurred vision, double vision, ear bleeding, ear discharge, ear drainage, ear pain, ear ringing, eye pain, eye redness, hearing loss, mouth pain, mouth swelling, nasal discharge, nose bleeding, nose congestion, nose pain, photophobia, tearing, throat pain, throat swelling, voice changes, others Respiratory: denies: cough, hemoptysis, orthopnea, SOB at rest, shortness of breath, SOB with excertion, stridor, wheezing, others Cardiovascular: denies: chest pain, dizzy spells, diaphoresis, Dyspnea on exertion, edema, irregular heart beat, left arm pain, lightheadedness, palpitations, PND, syncope, others Gastrointestinal: reports: abdominal pain, nausea, vomiting; denies: abdomen distended, blood streaked bowels, constipated, diarrhea, dysphagia, difficulty swallowing, hematemesis, melena, poor appetite, poor fluid intake, rectal bleeding, rectal pain, others Genitourinary: denies: abnormal vagina bleeding, burning, dyspareunia, dysuria, flank pain, frequency, hematuria, incontinence, pain, , vagina discharge, urgency, others Neurological: denies: dizziness, fainting, headache, left sided numbness, left sided weakness, numbness, paresthesia, pre-existing deficit, right sided numbness, right sided weakness, seizure, speech problems, tingling, tremors, weakness, others Musculoskeletal: denies: back pain, gout, joint pain, joint swelling, muscle pain, muscle stiffness, neck pain, others Integumetry: denies: bruises, change in color, change in hair/nails, dryness, laceration, lesions, lumps, rash, wounds, others Allergic/Immunocompromised: denies: Difficulty Healing, Frequent Infections, Hives, Itching, others Hematologic/Lymphatic: denies: anemia, blood clots, easy bleeding, easy b ruising, swollen glands, others Endocrine: denies: excessive hunger, excessive sweating, excessive thirst, excessive urination, flushing, intolerance to cold, intolerance to heat, unexplained weight gain, unexplained weight loss, others Psychiatric: denies: anxiety, bipolar disorder, depression, hopeless, panic disorder, schizophrenia, sleepless, suicidal, others All Other Systems: Reviewed and Negative Physical Exam General Appearance: Moderate Distress HEENT: Normal ENT Inspection, Pharynx Normal, TMs Normal Neck: Full Range of Motion, Non-Tender, Normal, Normal Inspection Respiratory: Chest Non-Tender, Lungs Clear, No Accessory Muscle Use, No Respiratory Distress, Normal Breath Sounds Cardiovascular: No Edema, No JVD, No Murmur, No Gallop, Normal Peripheral Pulses, Regular Rate/Rhythm Breast Exam: Deferred Gastrointestinal: Epigastric, No Organomegaly, No Pulsatile Mass, Normal Bowel Sounds, Soft, Tenderness Genitalia: Deferred Pelvic: Deferred Rectal: Deferred Extremities: No calf tenderness, Normal capillary refill, Normal inspection, Normal range of motion, Non-tender, No pedal edema Musculoskeletal : Apperance: Normal Neurologic: Alert, cop examiner II-XII nml as Tested, No Motor Deficits, Normal Affect, Normal Mood, No Sensory Deficits Cerebellar Function: Normal Reflexes: Normal Skin: Dry, Normal Color, Warm Lymphatic: No Adenopathy Was a procedure done? Was a procedure done?: No GI differential Dx Differential Diagnosis: Appendicitis, Gastritis/PUD, Gastroenteritis, Inflammatory BD, Pancreatitis, UTI, Electrolyte Imbalance, Food Poisoning X-Ray, Labs, Meds, VS Vital Signs Date Time Temp Pulse Resp B/P (MAP) Pulse Ox O2 Delivery O2 Flow Rate FiO2 08/01/24 16:35 98 16 100/60 08/01/24 16:00 98 16 100/60 (73) 96 08/01/24 15:52 76 18 108/69 08/01/24 15:13 80 16 108/69 08/01/24 14:38 101 20 136/90 08/01/24 14:14 101 20 99 Room Air* 0 21 08/01/24 14:14 97.6 101 20 136/90 (105) 99 97.6 08/01/24 13:54 97.5 94 16 134/95 (108) 100 97.5 Lab Test 08/01/24 16:14 08/01/24 14:03 Range/Units Urine Color Yellow Yellow Urine Clarity Turbid H Clear Urine pH 6.5 5.0-9.0 Urine Specific [place] 1.021 1.001-1.035 Urine Protein Trace H Negative Urine Ketones Negative Negative Urine Blood 1+ H Negative /uL Urine Nitrite Negative Negative Urine Bilirubin Negative Negative Urine Urobilinogen 6 Negative mg/dL Urine Leukocyte Esterase Negative Negative /uL Urine RBC 2 0 - 4 /hpf Urine Microscopic WBC < 1 0-5 /HPF Urine Squamous Epithelial Cells Few <5 /hpf Urine Calcium Oxalate Crystals Few None Seen Urine Bacteria None seen None Seen /hpf Urine Mucus Few None Seen Urine Glucose Normal Normal mg/dL Urine Test Negative Negative White Blood Count 9.7 4.4-10.8 10^3/uL Red Blood Count 4.84 4.0-5.20 10^6/uL Hemoglobin 12.5 12.2-16.2 g/dL Hematocrit 38.8 36.0-46.0 % Mean Corpuscular Volume 80.1 80.0-100.0 fL Mean Corpuscular Hemoglobin 25.9 L 28.0-32.0 pg Mean Corpuscular Hemoglobin Concent 32.3 32.0-36.0 g/dL Red Cell Distribution Width 16.2 H 11.8-14.3 % Platelet Count 420 140-450 10^3/uL Mean Platelet Volume 8.3 6.9-10.8 fL Neutrophils (%) (Auto) 73.2 37.0-80.0 % Lymphocytes (%) (Auto) 11.7 10.0-50.0 % Monocytes (%) (Auto) 13.0 H 0.0-12.0 % Eosinophils (%) (Auto) 1.8 0.0-7.0 % Basophils (%) (Auto) 0.3 0.0-2.0 % Neutrophils # (Auto) 7.1 1.6-8.6 10 ^3/uL Lymphocytes # (Auto) 1.1 0.4-5.4 10 ^3/uL Monocytes # (Auto) 1.3 0-1.3 10 ^3/uL Eosinophils # (Auto) 0.2 0-0.8 10 ^3/uL Basophils # (Auto) 0 0-0.2 10 ^3/uL Nucleated Red Blood Cells 0.0 % Sodium Level 140 136-145 mmol/L Potassium Level 3.2 L 3.5-5.1 mmol/L Chloride Level 104 98-107 mmol/L Carbon Dioxide Level 28 20-31 mmol/L Anion Gap 8 5-15 Blood Urea Nitrogen < 5 L 9-23 mg/dL Creatinine 0.69 0.550-1.02 mg/dL Glomerular Filtration Rate Calc 115 >90 mL/min BUN/Creatinine Ratio 7.2 L 10.0-20.0 Serum Glucose 77 74-106 mg/dL Calcium Level 9.5 8.7-10.4 mg/dL Total Bilirubin 0.4 0.2-1.0 mg/dL Aspartate Amino Transferase (AST) 38 13-40 U/L Alanine Aminotransferase (ALT) 34 7-40 U/L Alkaline Phosphatase 80 46-116 U/L Total Protein 7.4 5.7-8.2 g/dL Albumin 4.2 3.2-4.8 g/dL Lipase 25 12-53 U/L Current Medications Medications (Trade) Dose Ordered Sig/Sarah Route Start Time Stop Time Status Last Admin Ondansetron HCl (Zofran) 4 mg ONCE ONCE IV 08/01/24 14:00 08/01/24 14:01 DC 08/01/24 14:38 Sodium Chloride 1,000 ml @ 1,000 mls/hr Q1H ONCE IVB 08/01/24 14:00 08/01/24 14:59 DC 08/01/24 14:37 Morphine Sulfate 4 mg ONCE ONCE IV 08/01/24 14:00 08/01/24 14:01 DC 08/01/24 14:38 Pantoprazole Sodium (Protonix) 40 mg ONCE ONCE IV 08/01/24 14:00 08/01/24 14:01 DC 08/01/24 14:37 Ondansetron HCl (Zofran) 4 mg ONCE ONCE IV 08/01/24 16:00 08/01/24 16:01 DC 08/01/24 15:51 Morphine Sulfate 4 mg ONCE ONCE IV 08/01/24 16:00 08/01/24 16:01 DC 08/01/24 15:52 CT scan of the abdomen and pelvis shows: IMPRESSION: Fluid-filled nondistended small bowel loops with mild wall thickening of proximal small bowel loops. Correlate for enteritis. Mild mesenteric edema. Multiple subcentimeter mesenteric lymph nodes which may be reactive. Punctate nonobstructing bilateral renal calculi. 1.2 cm in short axis right inguinal lymph node which may be reactive. Unchanged bilateral L5 chronic pars defect with grade 2 anterolisthesis of L5 on S1. The patient was given Zofran 4 mg IV push for the nausea The patient was given 1 L bolus of normal saline The patient was given morphine 4 mg IV push for the pain The patient was given Protonix 40 mg IV push We had to repeat the doses of pain medications so the patient was now being admitted to the hospitalist. The CBC and chemistry panel is within normal limits. The urine test is negative Images Reviewed?: Images reviewed and evaluated by me Time of 1ST Reevaluation: 14:20 Reevaluation 1ST: Unchanged Patient Education/Counseling: Diagnosis, Treatment, Prognosis Family Education/Counseling: No Family Present Departure 1 Departure Time of Disposition: 17:23 Impression: Primary Impression: Intractable abdominal pain Additional Impression: Enteritis Disposition: ADMITTED INPATIENT Admit to: Med Surg Condition: Fair Critical Care Note Critical Care Time?: No Stability Stability form required: Yes Unstable for transfer: ED Physician Assesment (Clinical assesment) Heart Score Heart Score: Heart Score Response (Comments) Value History N/A 0 EKG N/A 0 Age N/A 0 Risk Factors N/A 0 Troponin N/A 0 Total 0 I personally scribed for PRIMITIVO CORTÉS MD ([email or web address]) on 08/01/24 at 13:57. Electronically submitted by Jaime Clinton ([email or web address]). PRIMITIVO CORTÉS MD Aug 01, 2024 13:57
[2024-08-01 14:14] VITALS: PULSE 101; RESP 20; O2SAT 99
[2024-08-01 14:19] LABS: Basophils # (auto) 0 10 ^3/uL (0-0.2); Basophils % (auto) 0.3 % (0.0-2.0); Eosinophils # (auto) 0.2 10 ^3/uL (0-0.8); Monocytes # (auto) 1.3 10 ^3/uL (0-1.3)
[2024-08-01 14:20] LABS: Eosinophils % (auto) 1.8 % (0.0-7.0); Hematocrit 38.8 % (36.0-46.0); Hemoglobin 12.5 g/dL (12.2-16.2); Lymphocytes # (auto) 1.1 10 ^3/uL (0.4-5.4); Lymphocytes % (auto) 11.7 % (10.0-50.0); Mean Corpuscular Hemoglobin 25.9 pg (28.0-32.0); Mean Corpuscular Hgb Conc. 32.3 g/dL (32.0-36.0); Mean Corpuscular Volume 80.1 fL (80.0-100.0); Neutrophils # (auto) 7.1 10 ^3/uL (1.6-8.6); Neutrophils % (auto) 73.2 % (37.0-80.0); Platelet Count (auto) 420 10^3/uL (140-450); Red Blood Cells 4.84 10^6/uL (4.0-5.20); Red Cell Distribution Width 16.2 % (11.8-14.3); White Blood Cell 9.7 10^3/uL (4.4-10.8)
[2024-08-01] MEDS: PANTOPRAZOLE 40 MG/10 ML VIAL INJ IV ONE (14:37)
[2024-08-01] MEDS: SODIUM CHLORIDE 0.9% 1,000 ML IVB ONE (14:37)
[2024-08-01] MEDS: MORPHINE SULFATE 4 MG/ML SYR/VIAL IV ONE ×2 (14:38→15:52)
[2024-08-01] MEDS: ONDANSETRON HCL 4 MG/2 ML VIAL IV ONE ×2 (14:38→15:51)
[2024-08-01 14:39] LABS: Alanine Aminotransferase 34 U/L (7-40); Albumin 4.2 g/dL (3.2-4.8); Alkaline Phosphatase 80 U/L (46-116); Anion Gap 8 (5-15); Aspartate Aminotransferase 38 U/L (13-40); Bilirubin, Total 0.4 mg/dL (0.2-1.0); Calcium 9.5 mg/dL (8.7-10.4); Carbon Dioxide 28 mmol/L (20-31); Chloride 104 mmol/L (98-107); Glucose 77 mg/dL (74-106); Lipase 25 U/L (12-53); Sodium 140 mmol/L (136-145); Total Protein 7.4 g/dL (5.7-8.2)
[2024-08-01 14:42] LABS: BUN/Creatinine Ratio 7.2 (10.0-20.0); Blood Urea Nitrogen < 5 mg/dL (9-23); Potassium 3.2 mmol/L (3.5-5.1)
[2024-08-01 16:25] LABS: Urine Bacteria None Seen /hpf (None Seen)
[2024-08-01 16:38] LABS: Urine Blood 1+ /uL (Negative); Urine Clarity Turbid (Clear); Urine Color Yellow (Yellow); Urine Mucus FEW (None Seen); Urine Protein, UAD TRACE (Negative); Urine Specific Gravity 1.021 (1.001-1.035); Urine Squamous Epithelial Cell FEW /hpf (<5); Urine Urobilinogen 6 mg/dL (Negative); Urine WBC < 1 /HPF (0-5); Urine pH 6.5 (5.0-9.0)
--- NOTE | 2024-08-01 17:19 | DVH ---
Exam: CT CT AB PEL WO CON-NO ORAL OR IV History: pain Comparison Study: 10/04/2021 TECHNIQUE: Multidetector CT of the abdomen and pelvis without IV contrast. Axial, coronal and sagitta l multiplanar reformats were obtained from the axial data set by the technologist. Radiation Dose Information: CT Dose: CTDI volume is 18.29 mGy. Dose-length product is 999.44 mGy*cm FINDINGS: Bibasilar atelectasis. Partially visualized heart is unremarkable. Mild hepatomegaly. Otherwise, liver, spleen, gallbladder, pancreas and adrenal glands unremarkable. Punctate nonobstructing bilateral renal calculi. No hydronephrosis bilaterally. Bilateral ureters and urinary bladder unremarkable. Uterus and adnexa are stomach is unremarkable. A tampon is noted in pl german. Mild wall thickening of proximal small bowel loops. Proximal small bowel loops are fluid-filled and n ondistended. The remainder of the small bowel loops unremarkable. Appendix is unremarkable. Small to moderate amount of fecal material within the colon. No evidence of intraperitoneal free air. Mild mesenteric edema. Multiple subcentimeter mesenteric lymph nodes largest measuring up to 0.7 cm. No evidence of aortic aneurysm. 1.1 cm right inguinal lymph node which may be reactive. The soft tissues are unremarkable. Grade 2 an terolisthesis of L5 on S1 with chronic bilateral L5 pars defect and severe degenerative changes at L5 -S1. Punctate sclerotic foci of the bilateral pelvic bones which represent bone islands. IMPRESSION: Fluid-filled nondistended small bowel loops with mild wall thickening of proximal small bowel loops. Correlate for enteritis. Mild mesenteric edema. Multiple subcentimeter mesenteric lymph nodes which may be reactive. Punctate nonobstructing bilateral renal calculi. 1.2 cm in short axis right inguinal lymph node which may be reactive. Unchanged bilateral L5 chronic pars defect with grade 2 anterolisthesis of L5 on S1.
[2024-08-01] MEDS: POTASSIUM CHL 20 Meq TABLET PO ONE (20:01)
[2024-08-01] MEDS: HYDROcodone-ACET 5/325MG TAB PO PRN (20:01)
[2024-08-01 21:30] VITALS: BP 117/75; PULSE 98; RESP 17; TEMP 97.6; O2SAT 100
[2024-08-01 21:40] VITALS: PULSE 98; RESP 17; O2SAT 100
--- NOTE | 2024-08-01 21:44 | DVHHP2 ---
History of Present Illness Reason for Visit: Abdominal pain History of Present Illness 38-year-old female presents for evaluation of abdominal pain. Patient reports a three day history of left upper sharp abdominal pain that is nonradiating. Patient reports episodes of nausea with vomiting. Denies fever or chills. No other acute complaints reported. Past Medical History Kidney stones Past Surgical History Right foot surgery Family History Noncontributory Smoke: No ALCOHOL: none Drugs: None Lives: with Family Review of Systems Review of Systems Review of systems are currently negative otherwise addressed in HPI. Allergies: Coded Allergies: NO KNOWN ALLERGIES (Unverified , 10/18/10) Medications Current Medications Medications Dose Ordered Sig/Sarah Route Start Time Stop Time Status Last Admin Dose Admin Pantoprazole Sodium 40 mg DAILY@0600 PO 08/02/24 06:00 Acetaminophen/ Hydrocodone Bitart 1 tab Q4HP PRN PO 08/01/24 18:45 08/01/24 20:01 1 TAB Ondansetron HCl 4 mg Q4HP PRN IV 08/01/24 18:45 Acetaminophen 650 mg Q6HP PRN PO 08/01/24 18:45 Metronidazole 500 mg Q8HR PO 08/01/24 22:00 Exam Vital Signs Vital Signs Date Time Temp Pulse Resp B/P (MAP) Pulse Ox O2 Delivery O2 Flow Rate FiO2 08/01/24 20:00 97.6 95 20 138/98 (111) 99 97.6 08/01/24 19:30 Room Air* 0 21 Exam Gen: 38-year-old female in mild distress Skin: Warm, dry, normal color and texture, no rash. HEENT: Normocephalic atraumatic, mucous membranes moist and pink. Neck: Cervical and supraclavicular nodes normal without enlargement, trachea is midline, thyroid gland is normal without masses. Pulmonary: Clear to auscultation and percussion bilaterally. Cardiac: Regular rate and rhythm. No murmur Abdomen: Soft, left upper quadrant pain, nondistended, bowel sounds present all 4 quadrants, no guarding, no rigidity, no organomegaly. Extremities: No cyanosis, clubbing, no edema Neuro: Cranial nerves II through XII grossly intact, normal affect and speech, n o focal motor deficits. Labs/Xrays ORDERING PHYSICIAN: PRIMITIVO CORTÉS MD PROCEDURE(s): ABPL - CT AB PEL WO CON-NO ORAL OR IV REASON: pain ORDER NUMBER(s): [id number], ACCESSION NUMBER(s): [id number] Exam: CT CT AB PEL WO CON-NO ORAL OR IV History: pain Comparison Study: 10/04/2021 TECHNIQUE: Multidetector CT of the abdomen and pelvis without IV contrast. Axial, coronal and sagittal multiplanar reformats were obtained from the axial data set by the technologist. Radiation Dose Information: CT Dose: CTDI volume is 18.29 mGy. Dose-length product is 999.44 mGy*cm FINDINGS: Bibasilar atelectasis. Partially visualized heart is unremarkable. Mild hepatomegaly. Otherwise, liver, spleen, gallbladder, pancreas and adrenal glands unremarkable. Punctate nonobstructing bilateral renal calculi. No hydronephrosis bilaterally. Bilateral ureters and urinary bladder unremarkable. Uterus and adnexa are stomach is unremarkable. A tampon is noted in place. Mild wall thickening of proximal small bowel loops. Proximal small bowel loops are fluid-filled and nondistended. The remainder of the small bowel loops unremarkable. Appendix is unremarkable. Small to moderate amount of fecal material within the colon. No evidence of intraperitoneal free air. Mild mesenteric edema. Multiple subcentimeter mesenteric lymph nodes largest measuring up to 0.7 cm. No evidence of aortic aneurysm. 1.1 cm right inguinal lymph node which may be reactive. The soft tissues are unremarkable. Grade 2 anterolisthesis of L5 on S1 with chronic bilateral L5 pars defect and severe degenerative changes at L5-S1. Punctate sclerotic foci of the bilateral pelvic bones which represent bone islands. IMPRESSION: Fluid-filled nondistended small bowel loops with mild wall thickening of proximal small bowel loops. Correlate for enteritis. Mild mesenteric edema. Multiple subcentimeter mesenteric lymph nodes which may be reactive. Punctate nonobstructing bilateral renal calculi. 1.2 cm in short axis right inguinal lymph node which may be reactive. Unchanged bilateral L5 chronic pars defect with grade 2 anterolisthesis of L5 on S1. ATED BY: ZULY VARGAS DO Labs Test 08/01/24 16:14 08/01/24 14:03 Range/Units Urine Color Yellow Yellow Urine Clarity Turbid H Clear Urine pH 6.5 5.0-9.0 Urine Specific [place] 1.021 1.001-1.035 Urine Protein Trace H Negative Urine Ketones Negative Negative Urine Blood 1+ H Negative /uL Urine Nitrite Negative Negative Urine Bilirubin Negative Negative Urine Urobilinogen 6 Negative mg/dL Urine Leukocyte Esterase Negative Negative /uL Urine RBC 2 0 - 4 /hpf Urine Microscopic WBC < 1 0-5 /HPF Urine Squamous Epithelial Cells Few <5 /hpf Urine Calcium Oxalate Crystals Few None Seen Urine Bacteria None seen None Seen /hpf Urine Mucus Few None Seen Urine Glucose Normal Normal mg/dL Urine Test Negative Negative White Blood Count 9.7 4.4-10.8 10^3/uL Red Blood Count 4.84 4.0-5.20 10^6/uL Hemoglobin 12.5 12.2-16.2 g/dL Hematocrit 38.8 36.0-46.0 % Mean Corpuscular Volume 80.1 80.0-100.0 fL Mean Corpuscular Hemoglobin 25.9 L 28.0-32.0 pg Mean Corpuscular Hemoglobin Concent 32.3 32.0-36.0 g/dL Red Cell Distribution Width 16.2 H 11.8-14.3 % Platelet Count 420 140-450 10^3/uL Mean Platelet Volume 8.3 6.9-10.8 fL Neutrophils (%) (Auto) 73.2 37.0-80.0 % Lymphocytes (%) (Auto) 11.7 10.0-50.0 % Monocytes (%) (Auto) 13.0 H 0.0-12.0 % Eosinophils (%) (Auto) 1.8 0.0-7.0 % Basophils (%) (Auto) 0.3 0.0-2.0 % Neutrophils # (Auto) 7.1 1.6-8.6 10 ^3/uL Lymphocytes # (Auto) 1.1 0.4-5.4 10 ^3/uL Monocytes # (Auto) 1.3 0-1.3 10 ^3/uL Eosinophils # (Auto) 0.2 0-0.8 10 ^3/uL Basophils # (Auto) 0 0-0.2 10 ^3/uL Nucleated Red Blood Cells 0.0 % Sodium Level 140 136-145 mmol/L Potassium Level 3.2 L 3.5-5.1 mmol/L Chloride Level 104 98-107 mmol/L Carbon Dioxide Level 28 20-31 mmol/L Anion Gap 8 5-15 Blood Urea Nitrogen < 5 L 9-23 mg/dL Creatinine 0.69 0.550-1.02 mg/dL Glomerular Filtration Rate Calc 115 >90 mL/min BUN/Creatinine Ratio 7.2 L 10.0-20.0 Serum Glucose 77 74-106 mg/dL Calcium Level 9.5 8.7-10.4 mg/dL Total Bilirubin 0.4 0.2-1.0 mg/dL Aspartate Amino Transferase (AST) 38 13-40 U/L Alanine Aminotransferase (ALT) 34 7-40 U/L Alkaline Phosphatase 80 46-116 U/L Total Protein 7.4 5.7-8.2 g/dL Albumin 4.2 3.2-4.8 g/dL Lipase 25 12-53 U/L Assessment/Plan Assessment/Plan Assessment Acute abdominal pain Possible enteritis Hypokalemia Plan Admit the patient to [facility] to hospitalist Clear liquid diet Flagyl p.o. Pain management Continue treatment per orders. Plan discussed with: Patient My Orders Orders - LAUREN MAGAÑA Procedure Category Date Status Time Pantoprazole Tablet PHA 08/02/24 In Process (Protonix Tablet) 06:00 Basic Metabolic Panel LAB 08/02/24 Verified 04:00 Admit ADMIT 08/01/24 Transmitted 18:37 Hydrocodone-Acet PHA 08/01/24 In Process 5/325mg Tab ([place] 18:45 Ondansetron Hcl PHA 08/01/24 In Process (Zofran) 18:45 Complete Blood Count LAB 08/02/24 Verified 04:00 Condition: Stable SARTHAK 08/01/24 In Process 18:37 Acetaminophen Tablet PHA 08/01/24 In Process (Tylenol Tablet) 18:45 Clear Liq Diet DIET 08/02/24 Transmitted Breakfast Bedrest With Bathroom SARTHAK 08/01/24 In Process Privileg 18:37 Metronidazole Tablet PHA 08/01/24 In Process (Flagyl Tablet) 22:00 Date of Service: Aug 01, 2024 Billing Provider: LAUREN MAGAÑA Common Visit Codes: [id number] INP/OBS CARE (MOD) LAUREN MAGAÑA Aug 01, 2024 21:44
[2024-08-01] MEDS: metroNIDAZOLE 500 MG TAB PO SCH (22:22)
[2024-08-01] MEDS ORDERED: IBUP-1456 PO (23:14)
[2024-08-01] MEDS ORDERED: GABA-339 PO (23:14)
[2024-08-02] VITALS (7 sets, daily range): BP systolic 110–127; BP diastolic 49–75; PULSE 76–104; RESP 14–18; TEMP 97.4–98.7; O2SAT 96–100
[2024-08-02] MEDS: PANTOPRAZOLE 40 MG TAB PO SCH ×2 (05:24→22:40)
[2024-08-02] MEDS: ACETAMINOPHEN 325 MG TAB PO PRN (06:03)
[2024-08-02 06:36] LABS: Basophils # (auto) 0 10 ^3/uL (0-0.2); Basophils % (auto) 0.3 % (0.0-2.0); Hemoglobin 11.5 g/dL (12.2-16.2); Monocytes # (auto) 1.3 10 ^3/uL (0-1.3); Neutrophils # (auto) 7.6 10 ^3/uL (1.6-8.6)
[2024-08-02 06:41] LABS: Eosinophils # (auto) 0.1 10 ^3/uL (0-0.8); Eosinophils % (auto) 1.4 % (0.0-7.0); Hematocrit 35.1 % (36.0-46.0); Lymphocytes # (auto) 1.6 10 ^3/uL (0.4-5.4); Lymphocytes % (auto) 14.9 % (10.0-50.0); Mean Corpuscular Hemoglobin 26.2 pg (28.0-32.0); Mean Corpuscular Hgb Conc. 32.8 g/dL (32.0-36.0); Mean Corpuscular Volume 79.8 fL (80.0-100.0); Monocytes % (auto) 11.8 % (0.0-12.0); Neutrophils % (auto) 71.6 % (37.0-80.0); Platelet Count (auto) 390 10^3/uL (140-450); Red Cell Distribution Width 15.9 % (11.8-14.3); White Blood Cell 10.6 10^3/uL (4.4-10.8)
[2024-08-02 06:43] LABS: Chloride 102 mmol/L (98-107); Potassium 3.8 mmol/L (3.5-5.1); Sodium 136 mmol/L (136-145)
[2024-08-02 06:44] LABS: Anion Gap 7 (5-15); Calcium 8.8 mg/dL (8.7-10.4); Carbon Dioxide 27 mmol/L (20-31)
[2024-08-02 06:49] LABS: Glucose 98 mg/dL (74-106)
[2024-08-02 06:50] LABS: BUN/Creatinine Ratio 8.2 (10.0-20.0); Blood Urea Nitrogen < 5 mg/dL (9-23)
[2024-08-02 11:55] LABS: Cannabinoid Screen, Urine Pos (NEGATIVE)
[2024-08-02 11:57] LABS: Amphetamine Screen, Urine Pos (NEGATIVE); Barbiturate Scree,Urine Neg (NEGATIVE); Benzodiazephine Screen, Urine Neg (NEGATIVE); Cocaine Screen, Urine Neg (NEGATIVE); Opiate Scree,Urine Pos (NEGATIVE); Phencyclidine Screen, Urine Neg (NEGATIVE)
--- NOTE | 2024-08-02 14:28 | DVHPNRES ---
Progress Note Date Seen: Aug 02, 2024 Resident Creating Document: LILLIANA SAWYERCELY RESIDENT Medical Necessity Reason Pt with a Central, PICC or Fol: No Subjective Review of Systems Patient is a 38-year-old female with no significant past medical history came to the ED with a chief complaint of epigastric and left upper quadrant abdominal pain for 3 days prior to admission. Patient reports that night she started to have multiple episodes of vomiting and left upper quadrant abdominal pain. The pain was nonradiating, constant with intermittent episodes of sharp pain and burning, the pain improved with food intake, no association with the change in position. She reports 2-3 episodes of vomiting every day since which mostly consisted of undigested food particles and fluid and bile. Patient denied loose watery stools but says she has been having pasty stools, no blood in stool, no melena. Patient denied fever, chills, recent travel or antibiotic use, no abnormal food intake. Patient was reports symptoms of acidity and heartburn intermittently. Patient denies dysuria, hematuria, flank pain. Past medical history: Anxiety, kidney stones Past surgical history: Right foot surgery Social history: Patient lives with family admits to smoking marijuana but denies any other illegal drug use Home medications: Ibuprofen for pain Review of systems Seen and examined at the bedside Reports of epigastric and left upper quadrant abdominal pain and tenderness Denies fever, chills, diarrhea, headache, chest pain or palpitations Objective vital signs Vital Sign Date Time Temp Pulse Resp B/P (MAP) Pulse Ox O2 Delivery O2 Flow Rate FiO2 08/02/24 12:30 98.1 76 14 113/71 (85) 96 98.1 08/01/24 21:40 Room Air* 0 21 Total Intake and Output 08/01/24 08/01/24 08/02/24 15:00 23:00 07:00 Intake Total 0 ml Balance 0 ml medications Current Medications Medications Dose Ordered Sig/Sarah Route Start Time Stop Time Status Last Admin Dose Admin Pantoprazole Sodium 40 mg DAILY@0600 PO 08/02/24 06:00 08/02/24 05:24 40 MG Acetaminophen/ Hydrocodone Bitart 1 tab Q4HP PRN PO 08/01/24 18:45 08/02/24 06:56 1 TAB Ondansetron HCl 4 mg Q4HP PRN IV 08/01/24 18:45 Acetaminophen 650 mg Q6HP PRN PO 08/01/24 18:45 08/02/24 06:03 650 MG Ceftriaxone Sodium 50 ml @ 100 mls/hr DAILY@09 IV 08/03/24 09:00 Sucralfate 1 gm BID@0600,2200 PO 08/02/24 22:00 Examination Constitutional: Patient was alert and oriented to time, place and person and does not appear to be in acute distress Gen - no pallor, no icterus, no cyanosis, no clubbing, no LAD, no edema . Skin - Patients skin is warm and dry.. HEENT - normocephalic, atraumatic, dry mucous membranes. Neck - full ROM, no LAD, no JVD Pulmonary - B/L vesicular breath sounds. no crackles , no wheezing, no stridor. cardiovascular - variable S1,S2 heard. no murmurs heard. GI - soft abdomen with tenderness to palpation in the epigastrium in the left upper quadrant. no hepatospleenomegaly. Bowel sounds normoactive Neurological - Bilateral upper extremity strength 5/5, bilateral lower extremity strength 5/5, no facial droop, normal speech, no tremor, no sensory deficiets. laboratory and microbiology Laboratory Tests 08/02/24 05:46 Test 08/02/24 05:46 Range/Units Serum Glucose 98 74-106 mg/dL Problem List/Assessment/Plan Problem List/Assessment/Plan Assessment Acute intractable abdominal pain Acute intractable vomiting Dyspepsia ? Acute gastritis ? Acute gastroenteritis likely toxin mediated vs viral vs bacterial Polysubstance use Hypokalemia CT abdomen pelvis without contrast IMPRESSION: Fluid-filled nondistended small bowel loops with mild wall thickening of proximal small bowel loops. Correlate for enteritis. Mild mesenteric edema. Multiple subcentimeter mesenteric lymph nodes which may be reactive. Punctate nonobstructing bilateral renal calculi. 1.2 cm in short axis right inguinal lymph node which may be reactive. Unchanged bilateral L5 chronic pars defect with grade 2 anterolisthesis of L5 on S1. Plan - IV fluids - IV antibiotics ceftriaxone - Protonix 40 mg p.o b.i.d. - sucralfate 1 g p.o. b.i.d. - stool occult blood pending - H&H stable - hypokalemia replenished - patient counseled about cessation of drug use - on clear liquid diet and if tolerated well diet will be advanced Goals of care discussed with the patient for over 21 minutes. Full code Plan discussed with Dr. Nur Plan discussed with: Patient My Orders My Orders Orders - LORRI SAWYER Procedure Category Date Status Time Stool Occult Blood LAB 08/02/24 Logged 11:19 Ceftriaxone 1gm/50ml PHA 08/03/24 In Process D5w (Rocephin) 09:00 Sucralfate Susp PHA 08/02/24 In Process (Carafate Susp) 22:00 Date of Service: Aug 02, 2024 Billing Provider: MELVIN NUR MD Common Visit Codes: [id number] INP/OBS CARE(MOD) LORRI SAWYER Aug 02, 2024 14:28 MELVIN NUR MD Aug 03, 2024 14:43
[2024-08-02] MEDS: SUCRALFATE 1 GM/10 ML ORAL SUSP PO ONE (14:44)
[2024-08-02] MEDS: cefTRIAXone 1GM/50ML D5W 50 ML IV ONE (14:45)
[2024-08-02] MEDS: SUCRALFATE 1 GM/10 ML ORAL SUSP PO SCH (22:40)
[2024-08-03 01:00] VITALS: BP 105/55; PULSE 95; RESP 18; TEMP 98.3; O2SAT 98
[2024-08-03] MEDS: ONDANSETRON HCL 4 MG/2 ML VIAL IV PRN (02:49)
[2024-08-03 05:00] VITALS: BP 121/70; PULSE 99; RESP 18; TEMP 99.1; O2SAT 98
[2024-08-03 06:08] LABS: Basophils # (auto) 0 10 ^3/uL (0-0.2); Basophils % (auto) 0.3 % (0.0-2.0); Eosinophils # (auto) 0.1 10 ^3/uL (0-0.8); Eosinophils % (auto) 1.7 % (0.0-7.0); Hemoglobin 11.4 g/dL (12.2-16.2); Lymphocytes # (auto) 1.3 10 ^3/uL (0.4-5.4); Lymphocytes % (auto) 14.8 % (10.0-50.0); Mean Corpuscular Hemoglobin 26.5 pg (28.0-32.0); Mean Corpuscular Hgb Conc. 33.5 g/dL (32.0-36.0); Mean Corpuscular Volume 78.9 fL (80.0-100.0); Monocytes # (auto) 1.1 10 ^3/uL (0-1.3); Monocytes % (auto) 13.5 % (0.0-12.0); Neutrophils # (auto) 5.9 10 ^3/uL (1.6-8.6); Neutrophils % (auto) 69.7 % (37.0-80.0); Nucleated Red Blood Cells % 0.2 %; Platelet Count (auto) 400 10^3/uL (140-450); Red Cell Distribution Width 15.8 % (11.8-14.3); White Blood Cell 8.5 10^3/uL (4.4-10.8)
[2024-08-03 06:19] LABS: Chloride 105 mmol/L (98-107); Sodium 140 mmol/L (136-145)
[2024-08-03 06:20] LABS: Anion Gap 8 (5-15); Carbon Dioxide 27 mmol/L (20-31)
[2024-08-03 06:21] LABS: Calcium 8.4 mg/dL (8.7-10.4); Potassium 3.4 mmol/L (3.5-5.1)
[2024-08-03 06:25] LABS: Glucose 101 mg/dL (74-106)
[2024-08-03 06:27] LABS: BUN/Creatinine Ratio 8.6 (10.0-20.0); Blood Urea Nitrogen < 5 mg/dL (9-23)
[2024-08-03 09:00] VITALS: BP 105/57; PULSE 78; RESP 18; TEMP 97.9; O2SAT 96
[2024-08-03] MEDS: POTASSIUM EFFERVESENT TAB 25 MEQ PO ONE (09:31)
[2024-08-03] MEDS: cefTRIAXone 1GM/50ML D5W 50 ML IV SCH (09:31)
[2024-08-03 13:00] VITALS: BP 114/64; PULSE 89; RESP 16; TEMP 97.5; O2SAT 97
[2024-08-03] MEDS ORDERED: PANT40TA2 PO (15:35)
[2024-08-03] MEDS ORDERED: SUCR1SUS26 PO (15:35)
[2024-08-03 17:00] VITALS: BP 117/83; PULSE 90; RESP 18; TEMP 97.9; O2SAT 99
--- NOTE | 2024-08-03 22:45 | DVHDSRES ---
Discharge Summary Date of Admission Resident Creating Document: LORRI SAWYER RESIDENT Aug 01, 2024 at 18:37 Date of Discharge: Aug 03, 2024 Admitting Diagnosis Acute abdominal pain Possible enteritis Hypokalemia Wounds: Right foot wound covered in sterile dressing Labs/Diagnostic Data: Laboratory Results Test 08/03/24 05:50 08/01/24 16:14 08/01/24 14:03 White Blood Count 8.5 10^3/uL (4.4-10.8) Red Blood Count 4.30 10^6/uL (4.0-5.20) Hemoglobin 11.4 g/dL (12.2-16.2) Hematocrit 34.0 % (36.0-46.0) Mean Corpuscular Volume 78.9 fL (80.0-100.0) Mean Corpuscular Hemoglobin 26.5 pg (28.0-32.0) Mean Corpuscular Hemoglobin Concent 33.5 g/dL (32.0-36.0) Red Cell Distribution Width 15.8 % (11.8-14.3) Platelet Count 400 10^3/uL (140-450) Mean Platelet Volume 8.2 fL (6.9-10.8) Neutrophils (%) (Auto) 69.7 % (37.0-80.0) Lymphocytes (%) (Auto) 14.8 % (10.0-50.0) Monocytes (%) (Auto) 13.5 % (0.0-12.0) Eosinophils (%) (Auto) 1.7 % (0.0-7.0) Basophils (%) (Auto) 0.3 % (0.0-2.0) Neutrophils # (Auto) 5.9 10 ^3/uL (1.6-8.6) Lymphocytes # (Auto) 1.3 10 ^3/uL (0.4-5.4) Monocytes # (Auto) 1.1 10 ^3/uL (0-1.3) Eosinophils # (Auto) 0.1 10 ^3/uL (0-0.8) Basophils # (Auto) 0 10 ^3/uL (0-0.2) Nucleated Red Blood Cells 0.2 % Sodium Level 140 mmol/L (136-145) Potassium Level 3.4 mmol/L (3.5-5.1) Chloride Level 105 mmol/L (98-107) Carbon Dioxide Level 27 mmol/L (20-31) Anion Gap 8 (5-15) Blood Urea Nitrogen < 5 mg/dL (9-23) Creatinine 0.58 mg/dL (0.550-1.02) Glomerular Filtration Rate Calc 120 mL/min (>90) BUN/Creatinine Ratio 8.6 (10.0-20.0) Serum Glucose 101 mg/dL (74-106) Calcium Level 8.4 mg/dL (8.7-10.4) Urine Color Yellow (Yellow) Urine Clarity Turbid (Clear) Urine pH 6.5 (5.0-9.0) Urine Specific [place] 1.021 (1.001-1.035) Urine Protein Trace (Negative) Urine Ketones Negative (Negative) Urine Blood 1+ /uL (Negative) Urine Nitrite Negative (Negative) Urine Bilirubin Negative (Negative) Urine Urobilinogen 6 mg/dL (Negative) Urine Leukocyte Esterase Negative /uL (Negative) Urine RBC 2 /hpf (0 - 4) Urine Microscopic WBC < 1 /HPF (0-5) Urine Squamous Epithelial Cells Few /hpf (<5) Urine Calcium Oxalate Crystals Few (None Seen) Urine Bacteria None seen /hpf (None Seen) Urine Mucus Few (None Seen) Urine Glucose Normal mg/dL (Normal) Urine Test Negative (Negative) Urine Opiates Screen Pos (NEGATIVE) Urine Fentanyl Screen Neg (NEGATIVE) Urine Barbiturates Screen Neg (NEGATIVE) Urine Phencyclidine Screen Neg (NEGATIVE) Urine Amphetamines Screen Pos (NEGATIVE) Urine Benzodiazepines Screen Neg (NEGATIVE) Urine Cocaine Screen Neg (NEGATIVE) Urine Cannabinoids Screen Pos (NEGATIVE) Total Bilirubin 0.4 mg/dL (0.2-1.0) Aspartate Amino Transferase (AST) 38 U/L (13-40) Alanine Aminotransferase (ALT) 34 U/L (7-40) Alkaline Phosphatase 80 U/L (46-116) Total Protein 7.4 g/dL (5.7-8.2) Albumin 4.2 g/dL (3.2-4.8) Lipase 25 U/L (12-53) Other Laboratory Tests 08/03/24 05:50 Brief Hx & Hospital Course: HPI Patient is a 38-year-old female with no significant past medical history came to the ED with a chief complaint of epigastric and left upper quadrant abdominal pain for 3 days prior to admission. Patient reports that night she started to have multiple episodes of vomiting and left upper quadrant abdominal pain. The pain was nonradiating, constant with intermittent episodes of sharp pain and burning, the pain improved with food intake, no association with the change in position. She reports 2-3 episodes of vomiting every day since which mostly consisted of undigested food particles and fluid and bile. Patient denied loose watery stools but says she has been having pasty stools, no blood in stool, no melena. Patient denied fever, chills, recent travel or antibiotic use, no abnormal food intake. Patient was reports symptoms of acidity and heartburn intermittently. Patient denies dysuria, hematuria, flank pain. Past medical history: Anxiety, kidney stones Past surgical history: Right foot surgery Social history: Patient lives with family admits to smoking marijuana but denies any other illegal drug use Home medications: Ibuprofen for pain Hospital course Patient was initially suspected to have acute gastroenteritis and acute gastritis. Patient reportedly has been taking ibuprofen for a long period of time and in the last few weeks has been having symptoms of dyspepsia with early satiety and easy bloating. Patient was started on IV antibiotics with ceftriaxone and on Protonix and sucralfate. H&H were stable patient tolerated clear liquid diet well following which she was started mechanical soft diet which she tolerated well without any nausea vomiting or exacerbation of the abdominal pain. Patient did not have any loose bowel movements while in the hospital. Patient was sent home in stable condition Discharge plan Medications: Protonix 40 mg once daily and sucralfate 1 g p.o. q.i.d. Advised to avoid NSAIDs, smoking, alcohol, caffeine, spicy foods Follow up with the PCP in 1 week and in the discharge clinic in 1 week Consults/Reason for consult none Operations or Procedures CT abdomen pelvis without contrast IMPRESSION: Fluid-filled nondistended small bowel loops with mild wall thickening of proximal small bowel loops. Correlate for enteritis. Mild mesenteric edema. Multiple subcentimeter mesenteric lymph nodes which may be reactive. Punctate nonobstructing bilateral renal calculi. 1.2 cm in short axis right inguinal lymph node which may be reactive. Unchanged bilateral L5 chronic pars defect with grade 2 anterolisthesis of L5 on S1. Condition at Discharge: Good Final Diagnosis/Problems List Acute intractable abdominal pain Acute intractable vomiting Dyspepsia ? Acute gastritis ? Acute gastroenteritis likely toxin mediated vs viral vs bacterial Polysubstance use Hypokalemia Discharge Disposition: Home Discharge Instruct/Medications Diet: See Comment Diet comment: continue on full liquid - soft diet for 3-4 days and then advance diet as tolerated AVOID NSAIDs, SMOKING, ALCOHOL, CAFFIENE, SPICY FOOD Activity: No Restrictions, As Tolerated Follow Up/Referral: Follow up with the PCP in one week Follow up in the D/c clinic in one week Medications: as per EMR AVOID NSAIDs Discharge Statement: "Patient was advised to return to the ER or call 911 if any headaches, dizziness, shortness of breath, chest pain, abdominal pain, bleeding, fevers, or worsening of medical condition. Patient was counseled about treatment plan, medications, possible side effects, patientverbalized understanding. All questions were answered to the best of my ability. This discharge took greater then 30 minutes in planning, reviewing documentation, counseling the patient, and discussing with other team members." ASSESSMENT ASSESSMENT Assessment Acute intractable abdominal pain Acute intractable vomiting Dyspepsia ? Acute gastritis ? Acute gastroenteritis likely toxin mediated vs viral vs bacterial Polysubstance use Hypokalemia LORRI SAWYER RESIDENT Aug 03, 2024 22:45
== END 2024-08-03 18:36 | disposition home or self-care (01) | DRG 241 ==
LOC: ER 13:43 → OVERFLOW 18:37 → EAST 18:47
PROVIDERS: ADMIT Student in an Organized Health Care Education/Training Program; ATTEND Student in an Organized Health Care Education/Training Program
DX: K29.00 Acute gastritis without bleeding (principal); A04.9 Bacterial intestinal infection, unspecified; K52.1 Toxic gastroenteritis and colitis; A08.4 Viral intestinal infection, unspecified; E87.6 Hypokalemia; T50.995A Adverse effect of other drugs, medicaments and biological substances, initial encounter; F41.9 Anxiety disorder, unspecified; Z87.442 Personal history of urinary calculi; Z79.2 Long term (current) use of antibiotics; Z79.891 Long term (current) use of opiate analgesic; Z79.899 Other long term (current) drug therapy; Y92.89 Other specified places as the place of occurrence of the external cause
CPT/HCPCS: 36415; 74176; 80048; 80053; 80307; 81001; 81025; 83690; 85025; 87077; 87081; 87186; 87205; 96361; 96374; 96375; G0378; J2405; J2470

== ENCOUNTER 2024-10-19 05:55 | Inpatient (IN) | payer MEDICAID ==
[~2024-10-19] VITALS: Ht 167.6 cm; Wt 79.5 kg
[~2024-10-19 05:55] MED LIST changes: -BACDST PO; -CEPH250C PO; -CEPH500C PO; -CLIN1CAP70 PO; +GABA-339 PO; -LINE1TAB6 PO; +PANT40TA2 PO; +SUCR1SUS26 PO; -TRAM50TA2 PO
--- NOTE | 2024-10-19 06:51 | ED.PDOC ---
GI ASSESSMENT HPI Comments 39 y/o F, JASON, presents to the ED for CC of abdominal pain. EMS reports, patient is coming from home where she c/o suprapubic abdominal pain with associated symptoms of nausea and vomiting onset, 0000 this morning (10/19/24). Patient relays, further symptoms of dysmenorrhea starting Friday (10/16/24); endorses taking Ibuprofen at 0300 with no relief. In route to the ED, patient was given 100mg of Fentanyl and 1g of Tylenol; complains of current 1010 pain. Patient denies fever, chills, diarrhea, fatigue, or weakness. No other symptoms or modifying factors present at this time. Chief Complaint: Abdominal Pain Time Seen by MD: 06:33 Primary Care Provider: [facility] Reviewed Notes: Nurses Notes, Medications, Allergies Allergies: Coded Allergies: NO KNOWN ALLERGIES (Unverified , 10/18/10) Home Meds Active Scripts Sucralfate (CARAFATE SUSP) 1 Gm/10 Ml Ss, 10 ML PO QID for 30 Days, #1200 ML 0 Refills Prov:LORRI SAWYER 08/03/24 Pantoprazole Sodium Sesquihydr (Protonix) 40 Mg Tab, 40 MG PO DAILY for 30 Days, #30 TAB 0 Refills Prov:LORRI SAWYER 08/03/24 Hydrocodone-Acetaminophen (Hydrocodone Bitartrate/AC 5-325 mg) 1 Tab Tab, 1 TAB PO Q8HP PRN for 5 Days, #15 TAB Prov:PRIMITIVO CORTÉS MD 07/07/24 Hydrocodone-Acetaminophen (Hydrocodone Bitartrate/AC 10-325 mg) 1 Tab Tab, 1 TAB PO BID, #10 TAB Prov:NICKOLAS OLSON 05/22/24 Tramadol HCl (Tramadol HCl) 50 Mg Tab, 50 MG PO Q8HP PRN for 7 Days, #21 TAB Prov:RADHA ARNOLD MD 02/18/24 Reported Medications Gabapentin (Gabapentin) 600 Mg Tab, 1 TAB PO TID, #90 TAB 3 Refills 08/01/24 Information Source: Patient Mode of Arrival: EMS Timing: Hours Duration: Since onset Prehospital treatment: None Quality: None Vomitus: Watery Severity: Moderate Recent: None Recent Hx of: None Pain Location: Suprapubic Modifying Factors: Nothing Associated sign and symptoms: Nausea, Vomiting, Abdominal Pain, Menorrhagia Past Medical History PAST MEDICAL HISTORY: Anxiety, Kidney Stones 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 Family History Family History: Reviewed,noncontributory to illness, Family hx of DM Social History Smoker: Non-Smoker Alcohol: Denies ETOH Use Drugs: Marijuana Lives In: Home Constitutional: denies: chills, diaphoresis, fatigue, fever, malaise, sweats, weakness, others EENTM: denies: blurred vision, double vision, ear bleeding, ear discharge, ear drainage, ear pain, ear ringing, eye pain, eye redness, hearing loss, mouth pain, mouth swelling, nasal discharge, nose bleeding, nose congestion, nose pain, photophobia, tearing, throat pain, throat swelling, voice changes, others Respiratory: denies: cough, hemoptysis, orthopnea, SOB at rest, shortness of breath, SOB with excertion, stridor, wheezing, others Cardiovascular: denies: chest pain, dizzy spells, diaphoresis, Dyspnea on exertion, edema, irregular heart beat, left arm pain, lightheadedness, palpit ations, PND, syncope, others Gastrointestinal: reports: abdominal pain, nausea, vomiting; denies: abdomen distended, blood streaked bowels, constipated, diarrhea, dysphagia, difficulty swallowing, hematemesis, melena, poor appetite, poor fluid intake, rectal bleeding, rectal pain, others Genitourinary: reports: abnormal vagina bleeding; denies: burning, dyspareunia, dysuria, flank pain, frequency, hematuria, incontinence, pain, , vagina discharge, urgency, others Neurological: denies: dizziness, fainting, headache, left sided numbness, left sided weakness, numbness, paresthesia, pre-existing deficit, right sided numbness, right sided weakness, seizure, speech problems, tingling, tremors, weakness, others Musculoskeletal: denies: back pain, gout, joint pain, joint swelling, muscle pain, muscle stiffness, neck pain, others Integumetry: denies: bruises, change in color, change in hair/nails, dryness, laceration, lesions, lumps, rash, wounds, others Allergic/Immunocompromised: denies: Difficulty Healing, Frequent Infections, Hives, Itching, others Hematologic/Lymphatic: denies: anemia, blood clots, easy bleeding, easy bruising, swollen glands, others Endocrine: denies: excessive hunger, excessive sweating, excessive thirst, excessive urination, flushing, intolerance to cold, intolerance to heat, unexplained weight gain, unexplained weight loss, others Psychiatric: denies: anxiety, bipolar disorder, depression, hopeless, panic disorder, schizophrenia, sleepless, suicidal, others All Other Systems: Reviewed and Negative Physical Exam General Appearance: Mild Distress HEENT: Pharynx Normal Neck: Normal Inspection Respiratory: No Respiratory Distress Cardiovascular: No Edema Breast Exam: Deferred Gastrointestinal: Tenderness Genitalia: Deferred Pelvic: Deferred Rectal: Deferred Extremities: No pedal edema Neurologic: No Motor Deficits Cerebellar Function: NOT DONE Reflexes: NOT DONE Skin: Normal Color Lymphatic: NOT DONE Was a procedure done? Was a procedure done?: No GI differential Dx Differential Diagnosis: Dysmenorrhea, Gastritis/PUD, Gastroenteritis, Electrolyte Imbalance, Food Poisoning, Bacterial, Viral X-Ray, Labs, Meds, VS Vital Signs Date Time Temp Pulse Resp B/P (MAP) Pulse Ox O2 Delivery O2 Flow Rate FiO2 10/19/24 11:15 75 16 123/78 10/19/24 09:38 65 16 125/77 (93) 100 10/19/24 09:32 65 16 125/77 10/19/24 08:17 72 16 116/79 10/19/24 08:12 72 12 99 Room Air* 0 21 10/19/24 07:59 97.9 72 12 116/79 (91) 99 97.9 10/19/24 06:00 97.7 67 11 109/98 (102) 98 97.7 Lab Test 10/19/24 06:44 10/19/24 06:25 Range/Units White Blood Count 11.6 H 4.4-10.8 10^3/uL Red Blood Count 5.05 4.0-5.20 10^6/uL Hemoglobin 13.1 12.2-16.2 g/dL Hematocrit 39.9 36.0-46.0 % Mean Corpuscular Volume 79.0 L 80.0-100.0 fL Mean Corpuscular Hemoglobin 25.8 L 28.0-32.0 pg Mean Corpuscular Hemoglobin Concent 32.7 32.0-36.0 g/dL Red Cell Distribution Width 17.3 H 11.8-14.3 % Platelet Count 371 140-450 10^3/uL Mean Platelet Volume 8.9 6.9-10.8 fL Neutrophils (%) (Auto) 88.4 H 37.0-80.0 % Lymphocytes (%) (Auto) 8.8 L 10.0-50.0 % Monocytes (%) (Auto) 2.3 0.0-12.0 % Eosinophils (%) (Auto) 0.2 0.0-7.0 % Basophils (%) (Auto) 0.3 0.0-2.0 % Neutrophils # (Auto) 10.2 H 1.6-8.6 10 ^3/uL Lymphocytes # (Auto) 1.0 0.4-5.4 10 ^3/uL Monocytes # (Auto) 0.3 0-1.3 10 ^3/uL Eosinophils # (Auto) 0 0-0.8 10 ^3/uL Basophils # (Auto) 0 0-0.2 10 ^3/uL Nucleated Red Blood Cells 0.0 % Sodium Level 136 136-145 mmol/L Potassium Level 3.5 3.5-5.1 mmol/L Chloride Level 103 98-107 mmol/L Carbon Dioxide Level 24 20-31 mmol/L Anion Gap 9 5-15 Blood Urea Nitrogen 8 L 9-23 mg/dL Creatinine 0.69 0.550-1.02 mg/dL Glomerular Filtration Rate Calc 115 >90 mL/min BUN/Creatinine Ratio 11.6 10.0-20.0 Serum Glucose 106 74-106 mg/dL Calcium Level 9.2 8.7-10.4 mg/dL Urine Color Light-yellow Yellow Urine Clarity Clear Clear Urine pH 6.0 5.0-9.0 Urine Specific [place] 1.029 1.001-1.035 Urine Protein Negative Negative Urine Ketones 1+ H Negative Urine Blood Negative Negative /uL Urine Nitrite Negative Negative Urine Bilirubin Negative Negative Urine Urobilinogen Normal Negative mg/dL Urine Leukocyte Esterase Negative Negative /uL Urine RBC 2 0 - 4 /hpf Urine Microscopic WBC 3 0-5 /HPF Urine Squamous Epithelial Cells Few <5 /hpf Urine Bacteria None seen None Seen /hpf Urine Mucus Few None Seen Urine Glucose Normal Normal mg/dL Urine Test Negative Negative Current Medications Medications (Trade) Dose Ordered Sig/Sarah Route Start Time Stop Time Status Last Admin Sodium Chloride 1,000 ml @ 1,000 mls/hr Q1H ONCE IV 10/19/24 06:30 10/19/24 07:29 DC 10/19/24 08:16 Ondansetron HCl (Zofran) 4 mg ONCE ONCE IV 10/19/24 06:30 10/19/24 06:31 DC 10/19/24 08:16 Morphine Sulfate 4 mg ONCE ONCE IV 10/19/24 06:30 10/19/24 06:31 DC 10/19/24 08:17 Famotidine (Pepcid Injection) 20 mg ONCE ONCE IV 10/19/24 06:30 10/19/24 06:31 DC 10/19/24 08:17 Morphine Sulfate 4 mg ONCE ONCE IV 10/19/24 11:15 10/19/24 11:16 DC 10/19/24 11:15 Ondansetron HCl (Zofran) 4 mg ONCE ONCE IV 10/19/24 11:15 10/19/24 11:16 DC 10/19/24 11:14 Time of 1ST Reevaluation: 07:03 Reevaluation 1ST: Unchanged Patient Education/Counseling: Diagnosis, Treatment Family Education/Counseling: No Family Present Departure 1 Departure Time of Disposition: 11:48 (Patient presented with abdominal pain that was concerning for possible appendicits, gastritis, cholecystitis, colitis, gastroenteritis, sbo, or orther possible surgical emergency. Data: 1. I ordered and reviewed the result of at least 3 labs including a CBC, BMP, and Urinalysis. 2. I independently interpreted the following tests: CT Abdoment and Pelvis is concerning for benign abdomen .Risk:This patient has a high risk of morbidity due to further diagnostic testing or treatment and may suffer from an acute abdominal process disorder. Workup reveals intractable abdominal pain and patient should be admitted for further workup. and possible expert consultation. ) Impression: Primary Impression: Intractable abdominal pain Disposition: 09 ADMITTED INPATIENT Admit to: Med Surg Condition: Serious Critical Care Note Critical Care Time?: Yes Critical care comment: Intractable abdominal pain Authorized and Performed by: Criselda Reynolds MD Total critical care time: Approximately 37 minutes Due to a high probability of clinically significant, life threatening deterioration, the patient required my highest level of preparedness to intervene emergently and I personally spent this critical care time directly and personally managing the patient. This critical care time included obtaining a history; examining the patient; pulse oximetry; ordering and review of studies; arranging urgent treatment with development of a management plan; evaluation of patient's response to treatment; frequent reassessment; and, discussions with other providers. This critical care time was performed to assess and manage the high probability of imminent, life-threatening deterioration that could result in multi-organ failure. It was exclusive of separately billable procedures and treating other patients and teaching time. Please see my other sections and the rest of the note for further information on patient assessment and treatment. Stability Stability form required: No Heart Score Heart Score: Heart Score Response (Comments) Value History N/A 0 EKG N/A 0 Age N/A 0 Risk Factors N/A 0 Troponin N/A 0 Total 0 I personally scribed for CRISELDA REYNOLDS MD ([email or web address]) on 10/19/24 at 06:51. Electronically submitted by Kimberley Solo ([email or web address]). CRISELDA REYNOLDS MD Oct 19, 2024 06:51
[2024-10-19 07:13] LABS: Chloride 103 mmol/L (98-107)
[2024-10-19 07:14] LABS: Anion Gap 9 (5-15); Carbon Dioxide 24 mmol/L (20-31)
[2024-10-19 07:15] LABS: Calcium 9.2 mg/dL (8.7-10.4)
[2024-10-19 07:19] LABS: Glucose 106 mg/dL (74-106)
[2024-10-19 07:20] LABS: BUN/Creatinine Ratio 11.6 (10.0-20.0)
[2024-10-19 07:21] LABS: Blood Urea Nitrogen 8 mg/dL (9-23); Potassium 3.5 mmol/L (3.5-5.1); Sodium 136 mmol/L (136-145)
[2024-10-19 07:59] VITALS: TEMP 97.9
[2024-10-19 08:12] VITALS: PULSE 72; RESP 12; O2SAT 99
[2024-10-19 08:16] LABS: Basophils # (auto) 0 10 ^3/uL (0-0.2); Basophils % (auto) 0.3 % (0.0-2.0); Eosinophils # (auto) 0 10 ^3/uL (0-0.8); Eosinophils % (auto) 0.2 % (0.0-7.0); Hematocrit 39.9 % (36.0-46.0); Hemoglobin 13.1 g/dL (12.2-16.2); Lymphocytes % (auto) 8.8 % (10.0-50.0); Mean Corpuscular Hemoglobin 25.8 pg (28.0-32.0); Mean Corpuscular Hgb Conc. 32.7 g/dL (32.0-36.0); Monocytes # (auto) 0.3 10 ^3/uL (0-1.3); Monocytes % (auto) 2.3 % (0.0-12.0); Neutrophils # (auto) 10.2 10 ^3/uL (1.6-8.6); Neutrophils % (auto) 88.4 % (37.0-80.0); Platelet Count (auto) 371 10^3/uL (140-450); Red Blood Cells 5.05 10^6/uL (4.0-5.20); Red Cell Distribution Width 17.3 % (11.8-14.3); White Blood Cell 11.6 10^3/uL (4.4-10.8)
[2024-10-19] MEDS: SODIUM CHLORIDE 0.9% 1,000 ML IV ONE (08:16)
[2024-10-19] MEDS: ONDANSETRON HCL 4 MG/2 ML VIAL IV ONE ×2 (08:16→11:14)
[2024-10-19] MEDS: MORPHINE SULFATE 4 MG/ML SYR/VIAL IV ONE ×2 (08:17→11:15)
[2024-10-19] MEDS: FAMOTIDINE (10MG/ML) 2ML VL IV ONE (08:17)
[2024-10-19 09:29] LABS: Urine Bacteria None Seen /hpf (None Seen)
[2024-10-19 09:38] VITALS: O2SAT 100
[2024-10-19 09:39] LABS: Urine Blood Negative /uL (Negative); Urine Clarity Clear (Clear); Urine Color Light-Yellow (Yellow); Urine Mucus FEW (None Seen); Urine Protein, UAD Negative (Negative); Urine Specific Gravity 1.029 (1.001-1.035); Urine Squamous Epithelial Cell FEW /hpf (<5); Urine Urobilinogen Normal (Negative); Urine WBC 3 /HPF (0-5)
[2024-10-19] MEDS: IOHEXOL 300 MG/ML 100ML BOTTLE IJ ONE (10:59)
[2024-10-19 11:15] VITALS: BP 123/78; PULSE 75; RESP 16
--- NOTE | 2024-10-19 11:19 | DVH ---
Exam: CT CT AB PEL WITH IV CON ONLY History: intractable abdominal pain COMPARISON: None Technique: Multidetector spiral CT of the abdomen and pelvis was performed from lung bases to pubic s ymphysis. Intravenous contrast was administered during this examination. Portal venous imaging was obtained. Axial, coronal and sagittal multiplanar reformats were performed by the technologist on a separate workstation. Radiation Dose : 1. Abdomen/Pelvis: CTDIvol 10.2mGy, DLP 545.47 mGy*cm. CONTRAST: Type of contrast: Omnipaque Contrast injected: 100 ml Findings: Lung Bases: No acute or significant lung base finding. Normal heart size. No pleural or pericardial effusion. Liver: The liver is normal in size. No focal lesions. Normal hepatic vascular enhancement. Gallbladder and Biliary Tree: Unremarkable Spleen: Unremarkable Pancreas: The pancreas is normal in appearance without focal lesions or abnormal enhancement. Adrenal Glands: Unremarkable Kidneys: No hydronephrosis. Bladder: Unremarkable Bowel: The stomach is grossly normal in appearance. Small bowel and colon are normal in caliber and d istribution. Normal appendix is visualized in the right lower quadrant without findings of appendici tis. Ascites: Absent Lymphadenopathy: No mesenteric, retroperitoneal or periportal lymphadenopathy. Abdominal Wall and Mesentery: Unremarkable. Vasculature: The visualized abdominal aorta is normal in size and caliber. Abdominal and pelvic vess els demonstrate normal enhancement. Pelvic Organs: Unremarkable Musculoskeletal: No aggressive focal bony lesions, acute fractures or dislocation. 9 mm anterolisthes is of L5 on S1 secondary to chronic spondylolysis IMPRESSION: 1. No acute abdominal or pelvic finding. 2. 9 mm anterolisthesis of L5 on S1 secondary to chronic spondylolysis Radiation optimization: All CT scans at this facility use at least one of these dose optimization shine hniques: automated exposure control mA and/or kV adjustment per patient size (includes targeted exam s where dose is matched to clinical indication) or iterative reconstruction.
[2024-10-19] MEDS ORDERED: HYDROcodone-ACET 5/325MG TAB PO PRN (14:15)
[2024-10-19] MEDS ORDERED: ACETAMINOPHEN 325 MG TAB PO PRN (14:15)
[2024-10-19] MEDS ORDERED: ONDANSETRON HCL 4 MG/2 ML VIAL IV PRN (14:15)
[2024-10-19] MEDS ORDERED: DOCUSATE SOD 100 MG CAP PO PRN (14:15)
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
--- NOTE | 2024-10-19 15:38 | DVH ---
Technique: Real-time ultrasound images through the pelvis using a transabdominal transducer. For bett er evaluation of the ovaries and endometrial stripe, an endovaginal transducer was used. Indication: heavy menstrual cycles Comparison: 10/19/2024 Findings: The uterus measures 9.8 cm. The endometrial stripe measures 15 mm. There are no focal masses. There is no abnormal flow in the endometrium. Right ovary measures 2.5 x 2.9 x 1.9 cm. Normal flow on color doppler images. No focal masses are javon ntified. Left ovary measures 2.1 x 2.7 x 1.6 cm. Normal flow on color doppler images. No focal masses are javon ntified. There is no significant free fluid in the pelvis. Impression: 1. Endometrial thickness at the upper limits of normal measuring 15 mm. 2. On the prior CT from today, there is a hemorrhagic fluid collection within the lower endometrial segment/ endocervical canal which is not well seen on this examination. Consider obtaining MRI pelvis with and without contrast to further evaluate this finding as well as sample worker consultation for direct vi sualization given the history of heavy menstrual cycles.
[2024-10-19] MEDS ORDERED: PATIENTS OWN MEDICATION (Gabapentin 1 TAB) PO SCH (22:00)
[2024-10-19] MEDS ORDERED: GABAPENTIN 300 MG CAP PO SCH (22:00)
== END 2024-10-19 15:14 | disposition left against medical advice (07) | DRG 532 ==
LOC: ER 05:55 → EDBD 05:55 → OVERFLOW 14:10
PROVIDERS: ADMIT Nurse Practitioner Family; ATTEND Nurse Practitioner Family
DX: N92.0 Excessive and frequent menstruation with regular cycle (principal); F41.9 Anxiety disorder, unspecified; Z53.29 Procedure and treatment not carried out because of patient's decision for other reasons; Z87.891 Personal history of nicotine dependence; Z87.442 Personal history of urinary calculi; Z79.899 Other long term (current) drug therapy
CPT/HCPCS: 36415; 74177; 76830; 76856; 80048; 81001; 81025; 85025; 96361; 96374; 96375; 99291; G0378; J2405; J3490

== ENCOUNTER 2025-04-08 18:35 | Inpatient (IN) | payer MEDICAID ==
[~2025-04-08] VITALS: Ht 167.6 cm; Wt 78.8 kg
[2025-04-08] MEDS: SODIUM CHLORIDE 0.9% 1,800 ML IV ONE (19:14)
--- NOTE | 2025-04-08 19:21 | ED.PDOC ---
History of Present Illness(SKN HPI Comments 39-YEAR-OLD FEMALE PRESENTS TO THE ED C/O WOUND WITH REDNESS, YELLOWISH GREENISH DRAINAGE, FOUL ODOR, AND SWELLING TO RIGHT FOOT X2 WEEKS. PT REPORTS HX OF DEGLOVE INJURY TO THAT FOOT PROXIMALLY THREE YEARS AGO. SHE STATES NO COMPLICATIONS SINCE HOWEVER REPORTS SIGNS AND SYMPTOMS OF INFECTION OVER THE PAS T TWO WEEKS. HAS BEEN DOING SELF WOUND CARE WITH NO HELP. DOES REPORT CHILLS SUBJECTIVE FEVERS DOES NOTE PAIN 10/10 PRESSURE TYPE PAIN NONRADIATING. DENIES HISTORY OF DVTS, DENIES NAUSEA, VOMITING, DIARRHEA, CHEST PAIN, SHORTNESS OF BREATH, DIFFICULTY BREATHING, ABDOMINAL PAIN. Chief Complaint: Wound Check Time Seen by MD: 18:37 Primary Care Provider: [facility] History of Present Illness: Nurses Notes, Medications, Allergies Allergies: Coded Allergies: NO KNOWN ALLERGIES (Unverified , 10/18/10) Home Meds Active Scripts Sucralfate (CARAFATE SUSP) 1 Gm/10 Ml Ss, 10 ML PO QID for 30 Days, #1200 ML 0 Refills Prov:LORRI SAWYER 08/03/24 Pantoprazole Sodium Sesquihydr (Protonix) 40 Mg Tab, 40 MG PO DAILY for 30 Days, #30 TAB 0 Refills Prov:LORRI SAWYER 08/03/24 Hydrocodone-Acetaminophen (Hydrocodone Bitartrate/AC 5-325 mg) 1 Tab Tab, 1 TAB PO Q8HP PRN for 5 Days, #15 TAB Prov:PRIMITIVO CORTÉS MD 07/07/24 Hydrocodone-Acetaminophen (Hydrocodone Bitartrate/AC 10-325 mg) 1 Tab Tab, 1 TAB PO BID, #10 TAB Prov:NICKOLAS OLSON 05/22/24 Tramadol HCl (Tramadol HCl) 50 Mg Tab, 50 MG PO Q8HP PRN for 7 Days, #21 TAB Prov:RADHA ARNOLD MD 02/18/24 Reported Medications Gabapentin (Gabapentin) 600 Mg Tab, 1 TAB PO TID, #90 TAB 3 Refills 08/01/24 Information Source: Patient Mode of Arrival: Ambulatory Past Medical History PAST MEDICAL HISTORY: Anxiety, Kidney Stones [employer] History: Spontaneous Family History Family History: Reviewed,noncontributory to illness, Family hx of DM Social History Smoker: Non-Smoker Alcohol: Denies ETOH Use Drugs: Marijuana Lives In: Home All Other Systems: Reviewed and Negative (see hpi) Physical Exam General Appearance: No Apparent Distress, Normal HEENT: Pharynx Normal Neck: Full Range of Motion, Non-Tender Respiratory: Chest Non-Tender, Lungs Clear, No Respiratory Distress, Normal Breath Sounds Cardiovascular: No Edema, No JVD, No Murmur, No Gallop, Normal Peripheral Pulses, Regular Rate/Rhythm Breast Exam: Deferred Gastrointestinal: No Organomegaly, Non Tender, No Pulsatile Mass, Normal Bowel Sounds, Soft Genitalia: Deferred Pelvic: Deferred Rectal: Deferred Extremities: No calf tenderness, Normal capillary refill, Normal range of motion, Pedal edema (RIGHT FOOT 1+ PITTING ) Musculoskeletal : Apperance: Normal Neurologic: Alert, No Motor Deficits, Normal Affect, Normal Mood, No Sensory Deficits Cerebellar Function: Normal Reflexes: NOT DONE Skin: Dry, Normal Color, Warm, Wounds (Approximate 4 in x 3 in ulcerated wound to right foot dorsum lateral aspect with noted yellowish greenish drainage fall odor surrounding erythema and moderate edema. Positive pedal pulse cap refill less than 3 seconds) Lymphatic: No Adenopathy Was a procedure done? Was a procedure done?: No Differential Diagnosis (INTG) Differential Diagnosis: Cellulitis, Puncture Wound, Other (DVT) Differential Diagnosis: Abscess, Osteomyelitis X-Ray, Labs, Meds, VS Vital Signs Date Time Temp Pulse Resp B/P (MAP) Pulse Ox O2 Delivery O2 Flow Rate FiO2 04/08/25 21:38 81 17 149/88 04/08/25 21:38 98.0 81 17 149/88 (108) 100 98.0 04/08/25 21:15 64 19 129/78 04/08/25 21:07 64 19 129/78 04/08/25 21:07 97.7 64 19 129/78 (95) 100 97.7 04/08/25 19:30 106 19 113/69 04/08/25 19:28 97.8 106 19 113/69 (84) 99 97.8 04/08/25 18:37 97.8 101 18 131/89 95 97.8 Lab Test 04/08/25 18:50 Range/Units White Blood Count 8.3 4.4-10.8 10^3/uL Red Blood Count 4.55 4.0-5.20 10^6/uL Hemoglobin 11.2 L 12.2-16.2 g/dL Hematocrit 35.1 L 36.0-46.0 % Mean Corpuscular Volume 77.2 L 80.0-100.0 fL Mean Corpuscular Hemoglobin 24.7 L 28.0-32.0 pg Mean Corpuscular Hemoglobin Concent 32.0 32.0-36.0 g/dL Red Cell Distribution Width 17.4 H 11.8-14.3 % Platelet Count 432 140-450 10^3/uL Mean Platelet Volume 8.2 6.9-10.8 fL Neutrophils (%) (Auto) 65.2 37.0-80.0 % Lymphocytes (%) (Auto) 24.4 10.0-50.0 % Monocytes (%) (Auto) 6.2 0.0-12.0 % Eosinophils (%) (Auto) 3.3 0.0-7.0 % Basophils (%) (Auto) 0.9 0.0-2.0 % Neutrophils # (Auto) 5.4 1.6-8.6 10 ^3/uL Lymphocytes # (Auto) 2.0 0.4-5.4 10 ^3/uL Monocytes # (Auto) 0.5 0-1.3 10 ^3/uL Eosinophils # (Auto) 0.3 0-0.8 10 ^3/uL Basophils # (Auto) 0.1 0-0.2 10 ^3/uL Nucleated Red Blood Cells 0.0 % D-Dimer, Quantitative 0.33 0.0-0.49 mg/L FEU Sodium Level 141 136-145 mmol/L Potassium Level 4.0 3.5-5.1 mmol/L Chloride Level 106 98-107 mmol/L Carbon Dioxide Level 28 20-31 mmol/L Anion Gap 7 5-15 Blood Urea Nitrogen 9 9-23 mg/dL Creatinine 0.72 0.550-1.02 mg/dL Glomerular Filtration Rate Calc 110 >90 mL/min BUN/Creatinine Ratio 12.5 10.0-20.0 Serum Glucose 85 74-106 mg/dL Lactic Acid Level 0.8 0.4-2.0 mmol/L Calcium Level 8.9 8.7-10.4 mg/dL Total Bilirubin 0.3 0.2-1.0 mg/dL Aspartate Amino Transferase (AST) 17 13-40 U/L Alanine Aminotransferase (ALT) 11 7-40 U/L Alkaline Phosphatase 71 46-116 U/L Total Protein 7.8 5.7-8.2 g/dL Albumin 4.4 3.2-4.8 g/dL Microbiology Date/Time Source Procedure Growth Status 04/08/25 19:19 Foot Right Gram Stain - Final Resulted 04/08/25 19:19 Foot Right Wound Culture - Preliminary Resulted 04/08/25 19:02 Blood Blood Culture - Preliminary NO GROWTH AFTER 24 HOURS OF INCUBATION. Resulted 04/08/25 18:50 Blood Blood Culture - Preliminary NO GROWTH AFTER 24 HOURS OF INCUBATION. Resulted X-Ray, Labs, Meds, VS Comment CT right foot IMPRESSION: Severe diffuse skin thickening and subcutaneous soft tissue thickening that extends to the cortical surface along the dorsal and lateral aspect of the foot and ankle. No obvious erosive changes to suggest osteomyelitis. If there is ongoing concern suggest further assessment with MRI. No abscess. (Patient presented with right foot infection that was concerning for possible sepsis, osteomyelitis, DVT or orther possible surgical emergency. I ordered and reviewed the result of at least 3 labs including a CBC, CMP, D-DIMER, LACTIC ACID and Urinalysis. I independently interpreted the following tests: CT RIGHT FOOT SHOWS severe diffuse skin thickening and subcutaneous soft tissue thickening. No obvious evidence of osteomyelitis. CBC and CMP within normal limits no elevation in white blood cell count D-dimer is negative lactic acid is 0.8. Workup reveals nonhealing acute on chronic wound and patient should be admitted for further IV antibiotics, pain management, wound care, and possible expert consultation Images Reviewed?: Images reviewed and evaluated by me Time of 1ST Reevaluation: 18:37 Reevaluation 1ST: Unchanged Time of 2ND Reevaluation: 19:16 Reevaluation 2ND: Unchanged Time of 3RD Reevaluation: 19:55 Reevaluation 3RD: Improved Patient Education/Counseling: Diagnosis, Treatment, Need For Follow Up Family Education/Counseling: No Family Present SEPSIS Sepsis Screen Date sepsis recognized/suspect: Apr 08, 2025 Time Sepsis recognized/suspect: 1838 Recent Procedure: No On Antibiotic Therapy: No Respiratory Rate >20: No Heart Rate >90: Yes Temp<36 C (96.8 F) or >38.3 C: No SBP <90 or MAP <65 mmHG: No New Acute Mental Status Change: No Is the patient on CPAP, BIPAP,: No Physician Orders Blood Culture (04/08/25 18:47) Ct R Foot Wo Contrast (04/08/25 18:47) Urinalysis (04/08/25 18:47) Wound Culture W/ Gs (04/08/25 18:51) Vital Signs Date Time Temp Pulse Resp B/P (MAP) Pulse Ox O2 Delivery O2 Flow Rate FiO2 04/08/25 21:38 81 17 149/88 04/08/25 21:38 98.0 81 17 149/88 (108) 100 98.0 04/08/25 21:15 64 19 129/78 04/08/25 21:07 64 19 129/78 04/08/25 21:07 97.7 64 19 129/78 (95) 100 97.7 04/08/25 19:30 106 19 113/69 04/08/25 19:28 97.8 106 19 113/69 (84) 99 97.8 04/08/25 18:37 97.8 101 18 131/89 95 97.8 Laboratory Tests Test 04/08/25 18:50 Lactic Acid Level 0.8 mmol/L (0.4-2.0) White Blood Count 8.3 10^3/uL (4.4-10.8) Departure 1 Departure Time of Disposition: 20:00 Impression: Primary Impression: Wound infection Disposition: 09 ADMITTED INPATIENT Condition: Guarded Discharged With: Self Critical Care Note Critical Care Time?: No Stability Stability form required: FARIBA Deal Apr 08, 2025 19:21
[2025-04-08 19:23] LABS: Hematocrit 35.1 % (36.0-46.0); Hemoglobin 11.2 g/dL (12.2-16.2); Mean Corpuscular Hemoglobin 24.7 pg (28.0-32.0); Mean Corpuscular Volume 77.2 fL (80.0-100.0); Nucleated Red Blood Cells % 0.0 %
[2025-04-08] MEDS: MORPHINE SULFATE 4 MG/ML SYR/VIAL IV ONE ×2 (19:30→21:15)
[2025-04-08] MEDS: VANCOMYCIN 1GM/250ML KIT 250 ML IV ONE (19:42)
--- NOTE | 2025-04-08 19:42 | DVH ---
EXAMINATION: CT CT R FOOT WO CONTRAST INDICATION: INFECTION EDEMA AND PAIN COMPARISON: MRI MRI R FOOT WO W CONTRAST on DOS: 02/16/24 TECHNIQUE: CT of the right foot was performed without contrast. Volume transverse images were obtained reconstructed in multiple planes using bone and soft tissue algorithms. CONTRAST: None. CTDIvol L: 7.75 mGy, DLP: 265.80 mGy-cm FINDINGS: Severe diffuse skin thickening and subcutaneous phlegmonous change along the dorsal and lateral aspect of the ankle and foot with skin and soft tissue thickening extending to the bony surface. No erosive changes or periostitis. No abscess. No fracture. Hammertoe deformity of the 2nd toe. Mild scattered degenerative changes throughout the midfoot. IMPRESSION: Severe diffuse skin thickening and subcutaneous soft tissue thickening that extends to the cortical surface along the dorsal and lateral aspect of the foot and ankle. No obvious erosive changes to suggest osteomyelitis. If there is ongoing concern suggest further assessment with MRI. No abscess.
[2025-04-08 19:44] LABS: Alanine Aminotransferase 11 U/L (7-40); Albumin 4.4 g/dL (3.2-4.8); Alkaline Phosphatase 71 U/L (46-116); Anion Gap 7 (5-15); BUN/Creatinine Ratio 12.5 (10.0-20.0); Calcium 8.9 mg/dL (8.7-10.4); Carbon Dioxide 28 mmol/L (20-31); Chloride 106 mmol/L (98-107); Glucose 85 mg/dL (74-106); Potassium 4.0 mmol/L (3.5-5.1); Sodium 141 mmol/L (136-145); Total Protein 7.8 g/dL (5.7-8.2)
[2025-04-08 19:45] LABS: Bilirubin, Total 0.3 mg/dL (0.2-1.0); Blood Urea Nitrogen 9 mg/dL (9-23)
[2025-04-08] MEDS ORDERED: NITROGLYCERIN 0.4 MG SL TAB SL PRN (22:00)
[2025-04-08] MEDS ORDERED: VANCOMYCIN PER PHARMACY 0 MG IV SCH (22:00)
[2025-04-08] MEDS ORDERED: MORPHINE SULFATE INJ 2 MG/ml SYRG IV PRN (22:00)
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
[2025-04-08] MEDS ORDERED: ALBUTEROL SULF 2.5 MG/0.5ML(0.5%) NEB SOLN NEB PRN (23:00)
[2025-04-08 23:36] VITALS: BP 122/82; PULSE 61; RESP 18; TEMP 97.9; O2SAT 99
[2025-04-09] MEDS: HYDROcodone-ACET 5/325MG TAB PO PRN (00:22)
[2025-04-09 01:00] VITALS: BP 137/77; PULSE 97; RESP 16; TEMP 97.9; O2SAT 96
[2025-04-09] MEDS: ASCORBIC ACID 500 MG TAB PO SCH (01:01)
[2025-04-09] MEDS: CEFEPIME 1GM/50ML 50 ML IV ONE (01:01)
[2025-04-09] MEDS: SODIUM CHLORIDE 0.9% 1,000 ML IV SCH (01:02)
[2025-04-09 04:15] VITALS: BP 122/82; PULSE 61; RESP 18; TEMP 98; O2SAT 98
[2025-04-09 05:00] VITALS: BP 129/79; PULSE 64; RESP 18; TEMP 97.9; O2SAT 100
[2025-04-09] MEDS: PANTOPRAZOLE 40 MG TAB PO SCH (06:02)
[2025-04-09 07:01] LABS: Hemoglobin 10.3 g/dL (12.2-16.2)
[2025-04-09 07:04] LABS: Hematocrit 31.6 % (36.0-46.0); Mean Corpuscular Hemoglobin 24.9 pg (28.0-32.0); Mean Corpuscular Volume 76.4 fL (80.0-100.0); Nucleated Red Blood Cells % 0.0 %
[2025-04-09 07:13] LABS: Albumin 3.8 g/dL (3.2-4.8); Anion Gap 8 (5-15); BUN/Creatinine Ratio 9.2 (10.0-20.0); Carbon Dioxide 25 mmol/L (20-31); Cholesterol 138 mg/dL (< 200); Glucose 86 mg/dL (74-106); HDL Cholesterol 45 mg/dL (40-59); Potassium 4.0 mmol/L (3.5-5.1); Sodium 141 mmol/L (136-145); Total Protein 6.9 g/dL (5.7-8.2); Triglycerides 133 mg/dL (< 150)
[2025-04-09 07:14] LABS: Alanine Aminotransferase < 9 U/L (7-40); Blood Urea Nitrogen 7 mg/dL (9-23); Chloride 108 mmol/L (98-107)
[2025-04-09 07:15] LABS: Bilirubin, Total 0.2 mg/dL (0.2-1.0); Calcium 8.3 mg/dL (8.7-10.4)
[2025-04-09 07:33] LABS: Alkaline Phosphatase 74 U/L (46-116); INR 1.01 (0.9-1.15); Partial Thromboplastin Time 29.0 SEC (24.5-34.5); Prothrombin Time 10.7 sec (9.3-11.8)
[2025-04-09] MEDS: CEFEPIME 1GM/50ML 50 ML IV SCH (08:27)
[2025-04-09] MEDS: ENOXAPARIN SOD 40 MG/0.4 ML SYRINGE SC SCH (08:27)
[2025-04-09] MEDS: KETOROLAC TROMETH 30 MG/ML 1ML VIAL IV ONE (08:27)
[2025-04-09] MEDS: GABAPENTIN 100 MG CAP PO SCH (08:27)
[2025-04-09] MEDS: ZINC SULFATE 220mg CAP or TAB PO SCH (08:27)
[2025-04-09 08:47] VITALS: BP 127/76; PULSE 59; RESP 17; TEMP 97.6; O2SAT 98
[2025-04-09 10:57] VITALS: O2SAT 98
--- NOTE | 2025-04-09 11:30 | DVH ---
Indication: Rule out peripheral arterial due to nonhealing wound Technique: Real- time ultrasound images of the right lower extremity with grayscale, color, and spectral wave Doppler. Comparison: None Findings: Biphasic/ triphasic waveforms throughout the right lower extremity. Peak systolic velocities are as follows (in cm/s): Right: Common femoral artery: 101 Profunda femoris: 73 Proximal superficial femoral: 87 Mid superficial femoral artery: 135 Distal superficial femoral artery: 79 Popliteal artery: 73 Posterior tibial artery: 80 Anterior tibial artery: 96 Dorsalis pedis artery: 72 Impression: No sonographic evidence for hemodynamically significant stenosis.
[2025-04-09 12:57] VITALS: BP 112/58; PULSE 65; RESP 16; TEMP 98.4; O2SAT 100
[2025-04-09] MEDS ORDERED: VANCOMYCIN 1.25GM/250ML 250 ML IV SCH (14:00)
== END 2025-04-09 13:26 | disposition left against medical advice (07) | DRG 383 ==
LOC: ER 18:35 → OVERFLOW 21:49
PROVIDERS: ATTEND Nurse Practitioner Adult Health
DX: L03.115 Cellulitis of right lower limb (principal); S91.301A Unspecified open wound, right foot, initial encounter; D50.9 Iron deficiency anemia, unspecified; J45.909 Unspecified asthma, uncomplicated; K21.9 Gastro-esophageal reflux disease without esophagitis; Z53.29 Procedure and treatment not carried out because of patient's decision for other reasons; F41.9 Anxiety disorder, unspecified; Z79.899 Other long term (current) drug therapy; Z87.442 Personal history of urinary calculi; Z87.59 Personal history of other complications of pregnancy, childbirth and the puerperium; Z83.3 Family history of diabetes mellitus; Z82.49 Family history of ischemic heart disease and other diseases of the circulatory system; X58.XXXA Exposure to other specified factors, initial encounter; Y93.89 Activity, other specified; Y92.89 Other specified places as the place of occurrence of the external cause; Y99.8 Other external cause status
CPT/HCPCS: 36415; 73700; 80053; 80061; 80202; 82306; 82607; 83036; 83605; 84443; 85025; 85379; 85610; 85652; 85730; 86141; 87040; 87077; 87081; 87186; 87205; 93926; G0378; J1885

== ENCOUNTER 2025-05-07 09:23 | Inpatient (IN) | payer MEDICAID ==
[~2025-05-07] VITALS: Ht 167.6 cm; Wt 86.4 kg
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
[2025-05-07 10:45] LABS: Potassium 4.5 mmol/L (3.5-5.1); Sodium 142 mmol/L (136-145)
[2025-05-07 10:46] LABS: Anion Gap 6 (5-15); Carbon Dioxide 27 mmol/L (20-31)
[2025-05-07 10:48] LABS: Nucleated Red Blood Cells % 0.0 %
[2025-05-07 10:48] LABS: Urine Protein, UAD Negative (Negative)
[2025-05-07 10:50] LABS: Hematocrit 31.4 % (36.0-46.0); Hemoglobin 10.1 g/dL (12.2-16.2); Mean Corpuscular Hemoglobin 24.1 pg (28.0-32.0); Mean Corpuscular Volume 74.6 fL (80.0-100.0)
[2025-05-07 10:52] LABS: BUN/Creatinine Ratio 11.8 (10.0-20.0); Glucose 97 mg/dL (74-106)
[2025-05-07 10:54] LABS: Blood Urea Nitrogen 8 mg/dL (9-23); Calcium 8.5 mg/dL (8.7-10.4); Chloride 109 mmol/L (98-107)
[2025-05-07] MEDS: SODIUM CHLORIDE 0.9% 1,000 ML IV ONE (10:58)
[2025-05-07] MEDS: HYDROcodone-ACET 7.5/325MG TAB PO ONE (12:03)
[2025-05-07] MEDS: HYDROcodone-ACET 7.5/325MG TAB ONE (12:04)
[2025-05-07] MEDS: CLINDAMYCIN 600MG IV 50 ML IV ONE ×2 (12:55→12:58)
[2025-05-07] MEDS ORDERED: VANCOMYCIN PER PHARMACY 0 MG IV SCH (13:45)
[2025-05-07] MEDS ORDERED: ONDANSETRON HCL 4 MG/2 ML VIAL IV PRN ×2 (13:45→21:30)
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
[2025-05-07 14:35] LABS: Amphetamine Screen, Urine Neg (NEGATIVE); Barbiturate Scree,Urine Neg (NEGATIVE); Benzodiazephine Screen, Urine Neg (NEGATIVE); Cannabinoid Screen, Urine Pos (NEGATIVE); Cocaine Screen, Urine Neg (NEGATIVE); Opiate Scree,Urine Neg (NEGATIVE); Phencyclidine Screen, Urine Neg (NEGATIVE)
[2025-05-07] MEDS: VANCOMYCIN 1GM/250ML KIT 250 ML IV SCH (14:56)
[2025-05-07] MEDS: SODIUM CHLORIDE 0.9% 1,000 ML IV SCH (15:01)
[2025-05-07] MEDS: MORPHINE SULFATE 4 MG/ML SYR/VIAL IV PRN ×2 (15:35→22:01)
[2025-05-07] MEDS: MORPHINE SULFATE 4 MG/ML SYR/VIAL ONE (15:35)
[2025-05-07 15:48] LABS: Triglycerides 74.0 mg/dL (< 150)
[2025-05-07 15:49] LABS: Magnesium 2.0 mg/dL (1.6-2.6)
[2025-05-07 15:54] LABS: Cholesterol 203.0 mg/dL (< 200); HDL Cholesterol 62.0 mg/dL (40-59)
[2025-05-07 16:06] LABS: Lipase 26.0 U/L (12-53)
--- NOTE | 2025-05-07 17:34 | DVH ---
EXAM: XY R FOOT 3 VIEW XRAY REASON FOR EXAM: Cellulitits TECHNIQUE: AP, lateral, and oblique views of the right foot are submitted for review. COMPARISON: CT CT R FOOT WO CONTRAST on DOS: 04/08/25, MRI MRI R FOOT WO W CONTRAST on DOS: 02/16/24 FINDINGS: There is chronic appearing deformity of the 2nd and 3rd metatarsal heads. There is possible cortical erosion at the 2nd metatarsal head raising concern for acute osteomyelitis. There is moderate soft tissue swelling throughout the forefoot. No acute fracture is identified. IMPRESSION: Chronic appearing deformity of the 2nd and 3rd metatarsal heads. Possible cortical erosion of the 2nd metatarsal head raising concern for acute osteomyelitis. Recommend forefoot MRI as it is more sensitive for acute osteomyelitis.
[2025-05-07 17:55] VITALS: PULSE 16; RESP 18; O2SAT 98
[2025-05-07] MEDS: diphenhydrAMINE HCL 50 MG/1 ML VL IV ONE (18:24)
[2025-05-07] MEDS: ACETAMINOPHEN 325 MG TAB PO PRN (18:31)
[2025-05-07] MEDS ORDERED: diphenhydrAMINE HCL 50 MG/1 ML VL IV PRN (18:45)
[2025-05-07 20:08] LABS: Iron 41.0 ug/dL (50-170)
[2025-05-07 20:09] LABS: Ferritin 5.4 ng/mL (10-291)
[2025-05-07 20:11] LABS: Total Iron Binding Capacity 399.0 ug/dL (250-425)
[2025-05-07] MEDS ORDERED: ACETAMINOPHEN 325 MG TAB PO PRN (21:30)
[2025-05-07] MEDS ORDERED: PIPERACILLIN-TAZOB 3.375GM 100 ML IV SCH (22:00)
[2025-05-07] MEDS ORDERED: GABAPENTIN 300 MG CAP PO SCH (22:00)
[2025-05-07 23:19] VITALS: BP 127/81; PULSE 80; RESP 20; TEMP 97.4; O2SAT 98
[2025-05-07 23:43] VITALS: BP 106/68; PULSE 80; RESP 18; O2SAT 98
[2025-05-08] VITALS (8 sets, daily range): BP systolic 105–141; BP diastolic 68–91; PULSE 64–86; RESP 17–18; TEMP 97.1–97.8; O2SAT 98–100
[2025-05-08] MEDS: GABAPENTIN 300 MG CAP PO SCH (00:37)
[2025-05-08] MEDS: PIPERACILLIN-TAZOB 3.375GM 100 ML IV SCH (00:37)
[2025-05-08] MEDS ORDERED: ACETAMINOPHEN 325 MG TAB PO PRN (01:30)
[2025-05-08] MEDS ORDERED: VANCOMYCIN PER PHARMACY 0 MG IV SCH (01:30)
[2025-05-08] MEDS: SODIUM CHLORIDE 0.9% 1,000 ML IV SCH (01:30)
[2025-05-08] MEDS ORDERED: ONDANSETRON HCL 4 MG/2 ML VIAL IV PRN (01:30)
[2025-05-08] MEDS: diphenhydrAMINE HCL 50 MG/1 ML VL IV PRN (01:40)
[2025-05-08] MEDS: PANTOPRAZOLE 40 MG TAB PO SCH (05:47)
[2025-05-08] MEDS: MORPHINE SULFATE 4 MG/ML SYR/VIAL IV PRN (05:49)
[2025-05-08] MEDS ORDERED: PANTOPRAZOLE 40 MG TAB PO SCH (06:00)
[2025-05-08 06:04] LABS: Hematocrit 30.4 % (36.0-46.0); Hemoglobin 9.6 g/dL (12.2-16.2); Mean Corpuscular Hemoglobin 23.7 pg (28.0-32.0); Mean Corpuscular Volume 75.0 fL (80.0-100.0); Nucleated Red Blood Cells % 0.0 %
[2025-05-08 06:17] LABS: Albumin 3.7 g/dL (3.2-4.8); Alkaline Phosphatase 63 U/L (46-116); Anion Gap 7 (5-15); BUN/Creatinine Ratio 11.4 (10.0-20.0); Carbon Dioxide 25 mmol/L (20-31); Glucose 85 mg/dL (74-106); Potassium 4.3 mmol/L (3.5-5.1); Sodium 142 mmol/L (136-145); Total Protein 6.5 g/dL (5.7-8.2)
[2025-05-08 06:18] LABS: Alanine Aminotransferase 9 U/L (7-40); Bilirubin, Total 0.3 mg/dL (0.2-1.0); Blood Urea Nitrogen 8 mg/dL (9-23); Calcium 8.3 mg/dL (8.7-10.4); Chloride 110 mmol/L (98-107); INR 0.98 (0.9-1.15); Partial Thromboplastin Time 28.1 SEC (24.5-34.5); Prothrombin Time 10.4 sec (9.3-11.8)
[2025-05-08 06:38] LABS: Hepatitis B Surface Antigen Negative (Negative)
[2025-05-08 06:53] LABS: Hepatitis C Antibody Negative (Negative)
[2025-05-08] MEDS: ENOXAPARIN SOD 40 MG/0.4 ML SYRINGE SC SCH (09:47)
[2025-05-08] MEDS ORDERED: ENOXAPARIN SOD 40 MG/0.4 ML SYRINGE SC SCH ×2 (10:00)
--- NOTE | 2025-05-08 12:06 | DVHPN2 ---
Subjective Patient continues to report having intermittent chills, extreme right foot pain. Reviewed: Care Plan, H&P, Labs, Medications Changes from previous H/P or p: No Changes General: Per HPI Objective Vitals Vital Signs Date Time Temp Pulse Resp B/P (MAP) Pulse Ox O2 Delivery O2 Flow Rate FiO2 05/08/25 08:45 97.8 69 17 110/75 (87) 100 97.8 05/08/25 08:00 Room Air* 0 21 Intake/Output Intake and Output 05/08/25 07:00 Intake Total 1332 ml Balance 1332 ml Intake Oral 282 ml IV Total 1050 ml # Voids 4 General Appearance: Alert, Oriented X3, Cooperative, mild distress HEENT: Atraumatic, PERRLA Lungs: Clear to auscultation, Normal air movement Cardiovascular: Normal S1, Normal S2 Abdomen: Normal bowel sounds, Soft, No tenderness, No hepatospenomegaly Musculoskeletal: Normal sensory function, Normal motor function Neuro: Normal gait, Normal speech Skin: Dry, Intact Psych/Mental Status: Mental status NL, Mood NL Medications Current Medications Medications Dose Ordered Sig/Sarah Route Start Time Stop Time Status Last Admin Dose Admin Gabapentin 300 mg TID PO 05/07/25 23:45 05/08/25 05:47 300 MG Vancomycin HCl 0 ml @ 0 mls/hr PER PHARMACY IV 05/08/25 01:30 Sodium Chloride 1,000 ml @ 75 mls/hr [id number] IV 05/08/25 01:30 Pantoprazole Sodium 40 mg DAILY@0600 PO 05/08/25 06:00 05/08/25 05:47 40 MG Diphenhydramine HCl 25 mg Q4HP PRN IV 05/08/25 01:30 05/08/25 09:56 25 MG Acetaminophen 325 mg Q4HP PRN PO 05/08/25 01:30 Ondansetron HCl 4 mg Q4HP PRN IV 05/08/25 01:30 Enoxaparin Sodium 40 mg DAILY SC 05/08/25 10:00 05/08/25 09:47 40 MG Vancomycin HCl 100 ml @ 100 mls/hr Q8H IV 05/08/25 14:00 Oxycodone HCl 5 mg Q4HP PRN PO 05/08/25 11:45 05/08/25 11:53 5 MG Ampicillin Sodium/ Sulbactam Sodium 3 gm/Sodium Chloride 100 ml @ 100 mls/hr Q6H IV 05/08/25 12:15 UNV Laboratory Results Laboratory Tests 05/08/25 05:34 Chemistry Test 05/08/25 05:34 Albumin 3.7 g/dL (3.2-4.8) Calcium Level 8.3 mg/dL (8.7-10.4) L Total Protein 6.5 g/dL (5.7-8.2) Coagulation Test 05/08/25 05:34 Prothrombin Time 10.4 sec (9.3-11.8) Prothrombin Time INR 0.98 (0.9-1.15) Activated Partial Thromboplast Time 28.1 SEC (24.5-34.5) LFT Test 05/08/25 05:34 Alanine Aminotransferase (ALT) 9 U/L (7-40) Alkaline Phosphatase 63 U/L (46-116) Aspartate Amino Transferase (AST) 17 U/L (13-40) Total Bilirubin 0.3 mg/dL (0.2-1.0) Urinalysis Test 05/07/25 10:37 Urine Color Light-yellow (Yellow) Urine Clarity Hazy (Clear) H Urine pH 7.5 (5.0-9.0) Urine Specific [place] 1.015 (1.001-1.035) Urine Protein Negative (Negative) Urine Ketones Negative (Negative) Urine Blood Negative /uL (Negative) Urine Nitrite Negative (Negative) Urine Bilirubin Negative (Negative) Urine Urobilinogen Normal mg/dL (Negative) Urine Leukocyte Esterase Negative /uL (Negative) Urine RBC 1 /hpf (0 - 4) Urine Microscopic WBC 4 /HPF (0-5) Urine Squamous Epithelial Cells Mod /hpf (<5) Urine Bacteria Few /hpf (None Seen) H Urine Glucose Normal mg/dL (Normal) Urine Test Negative (Negative) Microbiology Microbiology Date/Time Source Procedure Growth Status 05/07/25 10:37 Voided Urine Urine Culture - Preliminary No growth Resulted Labs and/or images reviewed: Labs reviewed by me, Image(s) reviewed by me Assessment/Plan Assessment/Plan Impression: -right foot ulcer, cellulitis -rule out right foot osteomyelitis -obesity -peripheral neuropathy Plan: -MRI of the right foot -podiatry consultation -IV antibiotics: Unasyn, vancomycin -wound culture -increase pain management: Percocet 09/3251 tablets q.6 hours as needed -PUD, DVT prophylaxis -repeat labs in a.m. Total time spent with patient discussing and formulating plan of care: 35 minutes. This medical document was created using an electronic medical record system with [employer] dictation system. Although this document has been carefully reviewed, there may still be some phonetic and typographical errors. These areas are purely typographical due to imperfections of the software programs, and do not reflect any compromise in the patient's medical care. Plan discussed with: Patient, Other (RN) My Orders Orders - HEBERT NIÑO NP Procedure Category Date Status Time Erythrocyte LAB 05/08/25 In Process Sedimentation Rate 11:52 Ampicillin & PHA 05/08/25 Logged Sulbactam Sodium 12:15 Basic Metabolic Panel LAB 05/09/25 Verified 04:00 Date of Service: May 08, 2025 Billing Provider: HEBERT NIÑO NP Common Visit Codes: [id number] INP/OBS CARE(HIGH) HEBERT NIÑO NP May 08, 2025 12:06
[2025-05-08] MEDS: AMPICILLIN & SULBACTAM SODIUM 3 GM in SODIUM CHL 0.9% 100 ML IV SCH (13:44)
[2025-05-08] MEDS: OXYCODONE W/ ACETAMINOPHEN 5/325MG TABLET PO PRN (14:06)
[2025-05-08] MEDS: VANCOMYCIN 750MG KIT 100 ML IV SCH (15:36)
--- NOTE | 2025-05-08 16:03 | MEDREC ---
[facility] Intervention Section I [facility] Intervention: Review courses of therapy (MRSA SCREEN POSITIVE CONSIDER ADDING MUPIROCIN 2% OINTMENT 1 APPLICATION IN EACH NOSTRIL BID FOR 5 DAYS ) RIZWAN RUIZ PHARMACIST May 08, 2025 16:03
--- NOTE | 2025-05-08 16:41 | DVH ---
EXAMINATION: MRI MRI R FOOT WO CONTRAST TECHNIQUE: MRI of the right was performed. The following sequences were obtained without contrast: Axial PD Axial PD FS Coronal T1 Coronal PD FS Coronal Oblique PD FS Sagittal T1 Sagittal T2 HISTORY: Rule out osteomyelitis COMPARISON: XY R FOOT 3 VIEW XRAY on DOS: 05/07/25, CT CT R FOOT WO CONTRAST on DOS: 04/08/25, FINDINGS: There is deformity and erosion of the 2nd metatarsal head consistent with the prior plain films and CT study. There is subluxation of the metatarsal phalangeal joint of the 2nd digit peak there is increased signal on the STIR sagittal sequences , series 8, in the distal diaphyseal shaft and metatarsal head and proximal phalanx of the 2nd digit, sagittal image 15, series 8 and coronal T2 weighted images 14 through 11, series 6. Is pericapsular soft tissue granulomatous changes surrounding the metatarsophalangeal joint of the 2nd digit which is partially subluxed. Increased signal in the mid to distal 4th meta tarsal, coronal images 19 through 14, series 6. No fracture No soft tissue abscess Soft tissue swelling seen of the midfoot. There is increased signal in the proximal 3rd metatarsal, coronal images 23 through 20, series 6. Soft tissue edematous changes seen surrounding the proximal 3rd metatarsal. Normal appearance of the distal achilles tendon. The talar dome is intact. Subtalar joints demonstrate no degenerative arthritic changes. Plantar aponeurosis is unremarkable. IMPRESSION: 1. Findings consistent with osteomyelitis of the 2nd through 4th digits as discussed above. No soft tissue abscess
[2025-05-08] MEDS: MUPIROCIN 2% OINT 15gm or 22gm FOR MRSA NARES EACHNOSTRI SCH (21:11)
[2025-05-09] MEDS: HYDROmorphone HCL 2 MG/ML VL/or syr IV ONE (00:49)
[2025-05-09 01:00] VITALS: BP 125/76; PULSE 79; RESP 16; TEMP 98.1; O2SAT 98
[2025-05-09 05:00] VITALS: BP 136/90; PULSE 75; RESP 16; TEMP 98.1; O2SAT 100
[2025-05-09 05:17] LABS: Hematocrit 30.2 % (36.0-46.0); Hemoglobin 9.5 g/dL (12.2-16.2); Mean Corpuscular Hemoglobin 23.7 pg (28.0-32.0); Mean Corpuscular Volume 74.7 fL (80.0-100.0); Nucleated Red Blood Cells % 0.1 %
[2025-05-09 05:29] LABS: Chloride 106 mmol/L (98-107); Potassium 4.2 mmol/L (3.5-5.1); Sodium 140 mmol/L (136-145)
[2025-05-09 05:30] LABS: Anion Gap 6 (5-15); Carbon Dioxide 28 mmol/L (20-31)
[2025-05-09 05:31] LABS: Calcium 8.2 mg/dL (8.7-10.4)
[2025-05-09 05:35] LABS: BUN/Creatinine Ratio 15.6 (10.0-20.0); Blood Urea Nitrogen 12 mg/dL (9-23)
[2025-05-09 05:40] LABS: Glucose 72 mg/dL (74-106)
[2025-05-09 09:00] VITALS: BP 123/82; PULSE 61; RESP 20; TEMP 98.2; O2SAT 100
--- NOTE | 2025-05-09 12:33 | DVHCONRES ---
Date Seen: May 09, 2025 Reason for Consultation Right foot wound History of Present Illness Emili Patel is a 39-year-old female patient who presents to the ED with chief complaint of nonhealing wound on right foot which has been present for the past year, but recently one month ago she has not been able to bear weight and has progressively got worse in the past week. Associated she complains of night sweats and foot swelling. Denies any other associated symptoms. Past Medical History See H&P Past Surgical History See H&P Family History: Chronic obstructive pulmonary disease G8 FATHER Diabetes mellitus G8 MOTHER Allergies: Coded Allergies: NO KNOWN ALLERGIES (Unverified , 10/18/10) Home Meds Active Scripts Sucralfate (CARAFATE SUSP) 1 Gm/10 Ml Ss, 10 ML PO QID for 30 Days, #1200 ML 0 Refills Prov:LORRI SAWYER RESIDENT 08/03/24 Pantoprazole Sodium Sesquihydr (Protonix) 40 Mg Tab, 40 MG PO DAILY for 30 Days, #30 TAB 0 Refills Prov:LORRI SAWYER 08/03/24 Hydrocodone-Acetaminophen (Hydrocodone Bitartrate/AC 5-325 mg) 1 Tab Tab, 1 TAB PO Q8HP PRN for 5 Days, #15 TAB Prov:PRIMITIVO CORTÉS MD 07/07/24 Hydrocodone-Acetaminophen (Hydrocodone Bitartrate/AC 10-325 mg) 1 Tab Tab, 1 TAB PO BID, #10 TAB Prov:NICKOLAS OLSON 05/22/24 Tramadol HCl (Tramadol HCl) 50 Mg Tab, 50 MG PO Q8HP PRN for 7 Days, #21 TAB Prov:RADHA ARNOLD MD 02/18/24 Reported Medications Gabapentin (Gabapentin) 600 Mg Tab, 1 TAB PO TID, #90 TAB 3 Refills 08/01/24 Current Medications Current Medications Medications (Trade) Dose Ordered Sig/Sarah Route PRN Reason Start Time Stop Time Status Last Admin Vancomycin HCl 100 ml @ 100 mls/hr Q8H IV 05/08/25 14:00 05/09/25 06:31 Mupirocin (Bactroban 2% Ointment) 1 applic BID EACHNOSTRI 05/08/25 22:00 1/2/26 21:59 05/09/25 08:44 Vital Signs Vital Signs Date Time Temp Pulse Resp B/P (MAP) Pulse Ox O2 Delivery O2 Flow Rate FiO2 05/09/25 09:00 98.2 61 20 123/82 (96) 100 98.2 05/09/25 08:00 Room Air* 0 21 Physical Exam Dermatological: Skin is dry with mild erythema and some maceration around the wound site No gross deformities noted Mild non-pitting edema present bilaterally Dorsal right foot wound with fibrosis some surrounding cellulitis Vascular: Dorsalis pedis and posterior tibial pulses are 1+ bilaterally Capillary refill is under 2 seconds Skin temperature is warm bilaterally Neurologic: Protective sensation is absent on the plantar forefoot bilaterally Monofilament testing reveals decreased sensation in multiple plantar sites Musculoskeletal: Range of motion at the ankle and MTP joints is within normal limits. Strength is 5/5 in all tested muscle groups. Gait is antalgic due to offloading of the affected limb. Labs/Diagnostic Data Labs Test 05/09/25 05:04 05/08/25 05:34 05/07/25 19:30 05/07/25 10:37 Range/Units White Blood Count 7.7 4.4-10.8 10^3/uL Red Blood Count 4.04 4.0-5.20 10^6/uL Hemoglobin 9.5 L 12.2-16.2 g/dL Hematocrit 30.2 L 36.0-46.0 % Mean Corpuscular Volume 74.7 L 80.0-100.0 fL Mean Corpuscular Hemoglobin 23.7 L 28.0-32.0 pg Mean Corpuscular Hemoglobin Concent 31.7 L 32.0-36.0 g/dL Red Cell Distribution Width 18.0 H 11.8-14.3 % Platelet Count 460 H 140-450 10^3/uL Mean Platelet Volume 7.5 6.9-10.8 fL Neutrophils (%) (Auto) 54.3 37.0-80.0 % Lymphocytes (%) (Auto) 32.1 10.0-50.0 % Monocytes (%) (Auto) 7.0 0.0-12.0 % Eosinophils (%) (Auto) 5.7 0.0-7.0 % Basophils (%) (Auto) 0.9 0.0-2.0 % Neutrophils # (Auto) 4.2 1.6-8.6 10 ^3/uL Lymphocytes # (Auto) 2.5 0.4-5.4 10 ^3/uL Monocytes # (Auto) 0.5 0-1.3 10 ^3/uL Eosinophils # (Auto) 0.4 0-0.8 10 ^3/uL Basophils # (Auto) 0.1 0-0.2 10 ^3/uL Nucleated Red Blood Cells 0.1 % Sodium Level 140 136-145 mmol/L Potassium Level 4.2 3.5-5.1 mmol/L Chloride Level 106 98-107 mmol/L Carbon Dioxide Level 28 20-31 mmol/L Anion Gap 6 5-15 Blood Urea Nitrogen 12 9-23 mg/dL Creatinine 0.77 0.550-1.02 mg/dL Glomerular Filtration Rate Calc 102 >90 mL/min BUN/Creatinine Ratio 15.6 10.0-20.0 Serum Glucose 72 L 74-106 mg/dL Calcium Level 8.2 L 8.7-10.4 mg/dL Erythrocyte Sedimentation Rate 20 0-20 mm/hr Prothrombin Time 10.4 9.3-11.8 sec Prothrombin Time INR 0.98 0.9-1.15 Activated Partial Thromboplast Time 28.1 24.5-34.5 SEC Total Bilirubin 0.3 0.2-1.0 mg/dL Aspartate Amino Transferase (AST) 17 13-40 U/L Alanine Aminotransferase (ALT) 9 7-40 U/L Alkaline Phosphatase 63 46-116 U/L Total Protein 6.5 5.7-8.2 g/dL Albumin 3.7 3.2-4.8 g/dL Random Vancomycin Level 4.6 L 5-10 ug/mL Hepatitis B Surface Antigen Negative Negative Hepatitis C Antibody Negative Negative Reticulocyte Count (auto) 1.47 0.5-1.5 % Iron Level 41 L 50-170 ug/dL Total Iron Binding Capacity 399 250-425 ug/dL Percent Iron Saturation 10.3 L 15-50 % Ferritin 5.4 L 10-291 ng/mL Folic Acid 13.46 >5.38 ng/mL Urine Color Light-yellow Yellow Urine Clarity Hazy H Clear Urine pH 7.5 5.0-9.0 Urine Specific [place] 1.015 1.001-1.035 Urine Protein Negative Negative Urine Ketones Negative Negative Urine Blood Negative Negative /uL Urine Nitrite Negative Negative Urine Bilirubin Negative Negative Urine Urobilinogen Normal Negative mg/dL Urine Leukocyte Esterase Negative Negative /uL Urine RBC 1 0 - 4 /hpf Urine Microscopic WBC 4 0-5 /HPF Urine Squamous Epithelial Cells Mod <5 /hpf Urine Bacteria Few H None Seen /hpf Urine Glucose Normal Normal mg/dL Urine Test Negative Negative Urine Opiates Screen Neg NEGATIVE Urine Fentanyl Screen Neg NEGATIVE Urine Barbiturates Screen Neg NEGATIVE Urine Phencyclidine Screen Neg NEGATIVE Urine Amphetamines Screen Neg NEGATIVE Urine Benzodiazepines Screen Neg NEGATIVE Urine Cocaine Screen Neg NEGATIVE Urine Cannabinoids Screen Pos NEGATIVE Test 05/07/25 10:29 Range/Units Phosphorus Level 3.0 2.4-5.1 mg/dL Magnesium Level 2.0 1.6-2.6 mg/dL Triglycerides Level 74 < 150 mg/dL Cholesterol Level 203 H < 200 mg/dL LDL Cholesterol 146 H < 100 mg/dL HDL Cholesterol 62 H 40-59 mg/dL Lipase 26 12-53 U/L Vitamin B12 Level 239 211-911 pg/mL Vitamin D 25-Hydroxy 17.4 L 30.0-100 ng/mL Thyroid Stimulating Hormone (TSH) 1.57 0.55-4.78 uIU/mL Microbiology Date/Time Source Procedure Growth Status 05/07/25 23:59 Nose MRSA Screen - Final Methicillin Resistant S.aureus Complete 05/07/25 19:49 Blood Blood Culture - Preliminary NO GROWTH AFTER 24 HOURS OF INCUBATION. Resulted 05/07/25 10:37 Voided Urine Urine Culture - Preliminary Resulted Problems(with codes): (1) Visit for wound care (2) Threatened (3) Normal (4) Urolithiasis (5) Vaginal bleeding (6) (7) Puncture wound of foot (8) Injury of left foot (9) Right foot injury (10) Uterine contractions at greater than 20 weeks of gestation (11) Uterine contractions (12) Pain management (13) Pelvic pain (14) Chronic wound (15) Encounter for wound re-check (16) Enteritis (17) Intractable abdominal pain (18) Wound infection (19) Cellulitis Plan/Recommendation ASSESSMENT: Patient is a 39 year old seen on the floor for a worsening ulcer PLAN: - The patients chart was reviewed, clinical findings were discussed with the patient, the etiologies of the conditions were discussed in detail, and a treatment plan was agreed to at this time, with both oral and written instructions provided. - reviewed advanced imaging - do not recommend surgery at this point - patient needs outpatient wound care - home health change dressing every other day - Medihoney on the wound - briefly discussed possible Kota osteotomy for the foot pain - f/u w/me 1 week after discharge All questions were answered and concerns addressed to the patient's satisfaction. The patient was given the phone number to the clinic and was told how to make contact with the clinic should any concerns or questions arise. Patient understands that if any questions or concerns arise prior to the next appointment, we should be contacted immediately. FOLLOW-UP: Continue to follow while inpatient Plan discussed with: Patient Visit Coding Podiatry Date of Service if different f: May 09, 2025 Billing Provider: BREANA WHITMORE DPM Podiatry Common Visit Codes: CONSULT ONLY Podiatry Consult Codes: 39528-OM/OBS CONSLTJ NEW/EST HI 80 BREANA WHITMORE DPM May 09, 2025 12:33
[2025-05-09] MEDS ORDERED: TRAM-626 PO (12:42)
[2025-05-09] MEDS ORDERED: AUG875T PO (12:42)
--- NOTE | 2025-05-09 12:46 | DVHDS2 ---
Discharge Summary Date of Admission May 07, 2025 at 13:45 Date of Discharge: May 09, 2025 Admitting Diagnosis Cellulitis of right foot Labs/Diagnostic Data: Laboratory Results Test 05/09/25 05:04 05/08/25 05:34 05/07/25 19:30 05/07/25 10:37 White Blood Count 7.7 10^3/uL (4.4-10.8) Red Blood Count 4.04 10^6/uL (4.0-5.20) Hemoglobin 9.5 g/dL (12.2-16.2) Hematocrit 30.2 % (36.0-46.0) Mean Corpuscular Volume 74.7 fL (80.0-100.0) Mean Corpuscular Hemoglobin 23.7 pg (28.0-32.0) Mean Corpuscular Hemoglobin Concent 31.7 g/dL (32.0-36.0) Red Cell Distribution Width 18.0 % (11.8-14.3) Platelet Count 460 10^3/uL (140-450) Mean Platelet Volume 7.5 fL (6.9-10.8) Neutrophils (%) (Auto) 54.3 % (37.0-80.0) Lymphocytes (%) (Auto) 32.1 % (10.0-50.0) Monocytes (%) (Auto) 7.0 % (0.0-12.0) Eosinophils (%) (Auto) 5.7 % (0.0-7.0) Basophils (%) (Auto) 0.9 % (0.0-2.0) Neutrophils # (Auto) 4.2 10 ^3/uL (1.6-8.6) Lymphocytes # (Auto) 2.5 10 ^3/uL (0.4-5.4) Monocytes # (Auto) 0.5 10 ^3/uL (0-1.3) Eosinophils # (Auto) 0.4 10 ^3/uL (0-0.8) Basophils # (Auto) 0.1 10 ^3/uL (0-0.2) Nucleated Red Blood Cells 0.1 % Sodium Level 140 mmol/L (136-145) Potassium Level 4.2 mmol/L (3.5-5.1) Chloride Level 106 mmol/L (98-107) Carbon Dioxide Level 28 mmol/L (20-31) Anion Gap 6 (5-15) Blood Urea Nitrogen 12 mg/dL (9-23) Creatinine 0.77 mg/dL (0.550-1.02) Glomerular Filtration Rate Calc 102 mL/min (>90) BUN/Creatinine Ratio 15.6 (10.0-20.0) Serum Glucose 72 mg/dL (74-106) Calcium Level 8.2 mg/dL (8.7-10.4) Erythrocyte Sedimentation Rate 20 mm/hr (0-20) Prothrombin Time 10.4 sec (9.3-11.8) Prothrombin Time INR 0.98 (0.9-1.15) Activated Partial Thromboplast Time 28.1 SEC (24.5-34.5) Total Bilirubin 0.3 mg/dL (0.2-1.0) Aspartate Amino Transferase (AST) 17 U/L (13-40) Alanine Aminotransferase (ALT) 9 U/L (7-40) Alkaline Phosphatase 63 U/L (46-116) Total Protein 6.5 g/dL (5.7-8.2) Albumin 3.7 g/dL (3.2-4.8) Random Vancomycin Level 4.6 ug/mL (5-10) Hepatitis B Surface Antigen Negative (Negative) Hepatitis C Antibody Negative (Negative) Reticulocyte Count (auto) 1.47 % (0.5-1.5) Iron Level 41 ug/dL (50-170) Total Iron Binding Capacity 399 ug/dL (250-425) Percent Iron Saturation 10.3 % (15-50) Ferritin 5.4 ng/mL (10-291) Folic Acid 13.46 ng/mL (>5.38) Urine Color Light-yellow (Yellow) Urine Clarity Hazy (Clear) Urine pH 7.5 (5.0-9.0) Urine Specific [place] 1.015 (1.001-1.035) Urine Protein Negative (Negative) Urine Ketones Negative (Negative) Urine Blood Negative /uL (Negative) Urine Nitrite Negative (Negative) Urine Bilirubin Negative (Negative) Urine Urobilinogen Normal mg/dL (Negative) Urine Leukocyte Esterase Negative /uL (Negative) Urine RBC 1 /hpf (0 - 4) Urine Microscopic WBC 4 /HPF (0-5) Urine Squamous Epithelial Cells Mod /hpf (<5) Urine Bacteria Few /hpf (None Seen) Urine Glucose Normal mg/dL (Normal) Urine Test Negative (Negative) Urine Opiates Screen Neg (NEGATIVE) Urine Fentanyl Screen Neg (NEGATIVE) Urine Barbiturates Screen Neg (NEGATIVE) Urine Phencyclidine Screen Neg (NEGATIVE) Urine Amphetamines Screen Neg (NEGATIVE) Urine Benzodiazepines Screen Neg (NEGATIVE) Urine Cocaine Screen Neg (NEGATIVE) Urine Cannabinoids Screen Pos (NEGATIVE) Test 05/07/25 10:29 Phosphorus Level 3.0 mg/dL (2.4-5.1) Magnesium Level 2.0 mg/dL (1.6-2.6) Triglycerides Level 74 mg/dL (< 150) Cholesterol Level 203 mg/dL (< 200) LDL Cholesterol 146 mg/dL (< 100) HDL Cholesterol 62 mg/dL (40-59) Lipase 26 U/L (12-53) Vitamin B12 Level 239 pg/mL (211-911) Vitamin D 25-Hydroxy 17.4 ng/mL (30.0-100) Thyroid Stimulating Hormone (TSH) 1.57 uIU/mL (0.55-4.78) Other Laboratory Tests 05/09/25 05:04 Brief Hx & Hospital Course: History of Present Illness Emili Patel is a 39-year-old female patient who presents to the ED with chief complaint of nonhealing wound on right foot which has been present for the past year, but recently one month ago she has not been able to bear weight and has progressively got worse in the past week. Associated she complains of night sweats and foot swelling. Denies any other associated symptoms. Course of hospitalization: Patient was started on IV antibiotic therapy with Unasyn and vancomycin. MRI of the foot was performed. ESR found to be negative. Podiatry consultation was obtained. Plan of care includes discharged home with home health services/wound care, oral antibiotic therapy with Augmentin 875 mg twice a day for 14 days, and follow up with Podiatry in two weeks. Patient was agreeable with discharge plan. All questions answered. Physical examination General: Alert and Oriented x3. No acute distress. Well-nourished. Eyes: EOMI. Anicteric. HENT: Moist mucous membranes. Lungs: Clear to auscultation bilaterally. No accessory muscle use. Cardiovascular: Regular rate and rhythm. No murmur. No JVD. Abdomen: Soft, non-tender and non-distended. No palpable masses. Extremities: No edema. Non-tender. Skin: No rashes or lesions. Warm. Neurologic: No focal neurological deficits. CN II-XII grossly intact, but not individually tested. Psychiatric: Cooperative. Appropriate mood and affect. Total time spent with patient discussing and formulating plan of care: 35 minutes. This medical document was created using an electronic medical record system with [employer] dictation system. Although this document has been carefully reviewed, there may still be some phonetic and typographical errors. These areas are purely typographical due to imperfections of the software programs, and do not reflect any compromise in the patient's medical care. Consults/Reason for consult Podiatry: Right foot cellulitis,? Osteomyelitis Condition at Discharge: Fair Final Diagnosis/Problems List Right foot cellulitis with chronic right foot wound -ruled out right foot osteomyelitis -obesity -peripheral neuropathy Discharge Disposition: Home with Health Services Discharge Instruct/Medications Diet: Cardiac 2g Na,low cholest Activity: No Restrictions, As Tolerated Follow Up/Referral: Follow up with Dr. Ordonez in two weeks Follow up with PCP in 1-2 weeks Medications: Augmentin 875 mg p.o. twice a day times 14 days Ultram 50 mg p.o. q.12 hours as needed for [id number] pain Scheduled Amoxicillin & Pot Clavulanate (Augmentin Tablet), 875 MG PO BID Gabapentin (Gabapentin), 1 TAB PO TID, (Reported) Hydrocodone-Acetaminophen (Hydrocodone Bitartrate/AC 10-325 mg), 1 TAB PO BID Pantoprazole Sodium Sesquihydr (Protonix), 40 MG PO DAILY Sucralfate (Carafate Susp), 10 ML PO QID Scheduled PRN Hydrocodone-Acetaminophen (Hydrocodone Bitartrate/AC 5-325 mg), 1 TAB PO Q8HP PRN Tramadol HCl (Tramadol HCl), 50 MG PO Q8HP PRN Tramadol HCl (Tramadol HCl), 50 MG PO Q12HP PRN 36 Discharge Statement: "Patient was advised to return to the ER or call 911 if any headaches, dizziness, shortness of breath, chest pain, abdominal pain, bleeding, fevers, or worsening of medical condition. Patient was counseled about treatment plan, medications, possible side effects, patientverbalized understanding. All questions were answered to the best of my ability. This discharge took greater then 30 minutes in planning, reviewing documentation, counseling the patient, and discussing with other team members." ASSESSMENT ASSESSMENT Assessment Right foot cellulitis with chronic right foot wound Date of Service: May 09, 2025 Billing Provider: HEBERT NIÑO NP Common Visit Codes: 26333-OOL/OBS DISCH DAY >30min HEBERT NIÑO NP May 09, 2025 12:46
[2025-05-09 13:00] VITALS: BP 122/72; PULSE 59; RESP 18; TEMP 98; O2SAT 100
[2025-05-09 16:00] VITALS: BP 123/82; PULSE 61; RESP 20; TEMP 98.2; O2SAT 100
[2025-05-09 16:31] VITALS: BP 108/74; PULSE 77; RESP 20; TEMP 98.2; O2SAT 97
== END 2025-05-09 17:26 | disposition home health service (06) | DRG 383 ==
LOC: ER 09:23 → OVERFLOW 13:45 → EAST 23:18
PROVIDERS: ADMIT Nurse Practitioner Acute Care; ATTEND Nurse Practitioner Acute Care
DX: L03.115 Cellulitis of right lower limb (principal); S91.301A Unspecified open wound, right foot, initial encounter; E66.9 Obesity, unspecified; D50.9 Iron deficiency anemia, unspecified; F19.10 Other psychoactive substance abuse, uncomplicated; G62.9 Polyneuropathy, unspecified; L97.519 Non-pressure chronic ulcer of other part of right foot with unspecified severity; Z87.442 Personal history of urinary calculi; Z87.59 Personal history of other complications of pregnancy, childbirth and the puerperium; Z83.3 Family history of diabetes mellitus; Z68.30 Body mass index [BMI] 30.0-30.9, adult; Z83.6 Family history of other diseases of the respiratory system; X58.XXXA Exposure to other specified factors, initial encounter; Y93.89 Activity, other specified; Y92.89 Other specified places as the place of occurrence of the external cause; Y99.8 Other external cause status
CPT/HCPCS: 36415; 73630; 73718; 80048; 80053; 80061; 80202; 80307; 81001; 81025; 82306; 82607; 82728; 82746; 83010; 83540; 83550; 83690; 83735; 84100; 84443; 85025; 85045; 85610; 85652; 85730; 86803; 87040; 87077; 87081; 87086; 87186; 87205; 87340; 96361; 96365; 96368; G0378; J2543; J3490